=== PATIENT | female | born 1970 | race Caucasian/White ===

== ENCOUNTER 2020-10-04 16:47 | Outpatient (CLI) | payer BC, SELFPAY | END 2020-10-04 16:48 | disposition home or self-care (01) | LOC: ANHCOVIDVC 16:48 | PROVIDERS: PCP Family Medicine | DX: Z23 Encounter for immunization (principal) | CPT/HCPCS: 0001A; 91300 ==

== ENCOUNTER 2020-10-25 16:50 | Outpatient (CLI) | payer BC, SELFPAY | END 2020-10-25 16:51 | disposition home or self-care (01) | LOC: ANHCOVIDVC 16:50 | PROVIDERS: PCP Family Medicine | DX: Z23 Encounter for immunization (principal) | CPT/HCPCS: 0002A; 91300 ==

== ENCOUNTER 2021-03-10 18:20 | Emergency (ER) | payer BC, SELFPAY ==
--- NOTE | ~2021-03-10 | XR_ITS ---
EXAMINATION: XR chest 2V DATE: 03/10/2021 19:12 INDICATION: Productive cough and fever TECHNIQUE: frontal and lateral views of the chest were obtained. COMPARISON: Chest radiograph dated 07/15/2010 FINDINGS: The lungs remain clear with no focal airspace opacities, pulmonary edema, pleural effusion or pneumot horax. The cardiomediastinal silhouette is normal. Cholecystectomy clips in right upper quadrant. IMPRESSION: 1. No acute cardiopulmonary disease. Reviewed, dictated and finalized at location A.
[2021-03-10 18:34] VITALS: BP 112/88; PULSE 85; RESP 16; TEMP 39.1; O2SAT 98
--- NOTE | 2021-03-10 18:54 | ED.URI ---
HPI - URI/Sore Throat General Chief Complaint: Upper Respiratory Infection Stated Complaint: Fever,Headache,Congestion Time Seen by Provider: 03/10/21 18:54 Source: patient Mode of arrival: ambulatory Limitations: no limitations History of Present Illness HPI Narrative: 50 year old female who presents [facility] with complaints of headache, congestion, and intermittent fevers since Thursday. Patient states that she had rapid and PCR COVID testing which were both negative. Patient continues to have sinus congestion and drainage with some cough and some headache discomfort. Patient reports that she has been taking OTC cough and cold medications and using Tylenol and Ibuprofen for her fever. Patient reports generalized aching and malaise. She reports that she has had COVID immunizations X2 with [employer] vaccine. MD elicited complaint: fever, nasal congestion and other (headache) Related Data Home Medications Medication Instructions Recorded Confirmed celecoxib 50 mg capsule 50 mg PO DAILY 09/28/20 Allergies Allergy/AdvReac Type Severity Reaction Status Date / Time erythromycin base Allergy Unknown UNKNOWN Verified 09/28/20 10:27 Macrolide Antibiotics Allergy Unknown UNKNOWN Verified 09/28/20 10:27 Review of Systems Review of Systems: CONSTITUTIONAL: Positive fever, chills, or sweats. EYES: Denies visual changes, redness, or discharge. ENT:Positive for rhinorrhea, congestion, no sore throat, or otalgia. CARDIOVASCULAR: Denies chest pain, palpitations, or edema. RESPIRATORY: Positive for cough no dyspnea. GASTROINTESTINAL: Denies abdominal pain, nausea, vomiting, or diarrhea. GENITOURINARY: Denies dysuria or hematuria. SKIN: Denies rash or itching. MUSCULOSKELETAL: Denies back pain, joint pain, positive for generalized malaise and aching NEUROLOGIC: Positive headache,no numbness, or weakness. PSYCHIATRIC:Positive history of anxiety or depression. All systems reviewed & are unremarkable except as noted in HPI and below PMFSH Past Medical History Medical History Chronic low back pain HLD (hyperlipidemia) Mood disorder Normal colonoscopy (~2012) MAJOR (obstructive sleep apnea) Surgical History Surgical History H/O esophagogastroduodenoscopy (~2012) normal H/O foot surgery bilateral bunion repair Total knee replacement status Family History Family History (Updated 03/12/21 @ 20:54 by Belén Mccrary NP) Other Adopted Social History Social History Smoking status: Never smoker Second hand tobacco smoke exposure: No Alcohol intake: current Alcohol use details: rare Substance use: never Substance use type: does not use Gender identity (if verbalized by the patient): Female Comments At time of signature, agree with nursing past medical, surgical, social and family history. There is no relevant family history pertinent to the presenting complaint Exam Narrative: GENERAL: Well-appearing, well-nourished, and in no acute distress. HEAD: Normocephalic, atraumatic. EYES: PERRLA and EOMI. ENT: Nares red swollen with clear rhinorrhea no epistaxis. Mucous membranes moist.TM's normal with dull light refex, throat mild redness with no lesions or exudates no tonsil enlargement, post nasal drainage noted to back of throat.Positive for frontal headache NECK: Supple.no lymphadenopathy CHEST: Clear to auscultation. No respiratory distress. cough at times productive SAO2 98% on room air HEART: Regular rate and rhythm. No murmur heard. Normal peripheral pulses. ABDOMEN: Soft, nontender, nondistended, normal active bowel sounds. EXTREMITIES: Normal range of motion. No edema. SKIN: Warm, dry, no rash. NEURO: No focal deficits. Alert and oriented x3. Course Vital Signs Vital signs: Vital Signs Temperature 39.1 C H 03/10/21 18:34 Pulse Ra
== END 2021-03-10 19:58 | disposition home or self-care (01) ==
PROVIDERS: Emergency Provider Registered Nurse; PCP Family Medicine
DX: J01.40 Acute pansinusitis, unspecified (principal); J06.9 Acute upper respiratory infection, unspecified; E78.5 Hyperlipidemia, unspecified; G47.33 Obstructive sleep apnea (adult) (pediatric)
CPT/HCPCS: 71046; 99213; G0463

== ENCOUNTER 2021-03-28 14:37 | Emergency (ER) | payer BC, SELFPAY ==
[2021-03-28 14:51] VITALS: BP 103/50; PULSE 87; RESP 20; TEMP 39.2; O2SAT 97
--- NOTE | 2021-03-28 15:25 | ED.URI ---
HPI - URI/Sore Throat General Chief Complaint: Upper Respiratory Infection Stated Complaint: FEVER/CONGESTION Source: patient and RN notes reviewed Mode of arrival: ambulatory History of Present Illness HPI Narrative: This is a 50-year-old female who presented to urgent care with complaints of body aches, productive cough yellowish, frontal lobe pain, chills, postnasal dripping, and temperature of 100.3. Patient notes that last month she visited our urgent care and was prescribed Augmentin for sinus infection. Patient notes that it did not prove. She was also tested for Covid at that time which was negative. She has been vaccinated. She does not believe that she is Covid positive believe that her problem is linked to her sinuses. The patient denies SOB, CP, palpitation, extremity numbness, lightheadedness, dizziness, constipation, diarrhea, chills, or fever. Related Data Home Medications Medication Instructions Recorded Confirmed celecoxib [Celebrex] 50 mg PO BID 03/28/21 03/28/21 cyclobenzaprine [Flexeril] 10 mg PO HS 03/28/21 03/28/21 venlafaxine [Effexor XR] 75 mg PO DAILY 03/28/21 03/28/21 Allergies Allergy/AdvReac Type Severity Reaction Status Date / Time erythromycin base Allergy Unknown UNKNOWN Verified 03/28/21 15:01 Macrolide Antibiotics Allergy Unknown UNKNOWN Verified 03/28/21 15:01 Review of Systems Review of Systems: A 14 organ system Review of Systems was performed and pertinent positives included in the HPI, otherwise remaining ROS is negative. [facility] Past Medical History Medical History Chronic low back pain HLD (hyperlipidemia) Mood disorder Normal colonoscopy (~2012) MAJOR (obstructive sleep apnea) Surgical History Surgical History H/O esophagogastroduodenoscopy (~2012) normal H/O foot surgery bilateral bunion repair Total knee replacement status Family History Family History Other Adopted Social History Social History Smoking status: Never smoker Second hand tobacco smoke exposure: No Alcohol intake: current Alcohol use details: rare Substance use: never Substance use type: does not use Gender identity (if verbalized by the patient): Female Exam Narrative: GENERAL: This is a well-nourished, well-developed patient, in no apparent distress. HEAD: normocephalic, atraumatic. Frontal and maxillary tenderness EYES: PERRL. Sclera clear/white. Vision is grossly intact. EARS: External ears normal, auditory canals clear and without drainage, TMs normal without perforation. Hearing grossly intact. NOSE: External nose normal with no obvious nasal discharge, nares without redness, no rhinorrhea. THROAT: Mucous membranes moist, posterior pharynx erythematous. NECK: Neck supple, non-tender without lymphadenopathy, masses or thyromegaly. CARDIOVASCULAR: Regular rate and rhythm without murmurs, gallops, or rubs. RESPIRATORY: Clear to auscultation. Breath sounds equal bilaterally. No wheezes, rales, or rhonchi. GASTROINTESTINAL: Abdomen soft, non-tender, nondistended. Bowel sounds are active. No hepato-splenomegaly, or palpable masses. No guarding. SKIN: warm, intact with no suspicious lesions or rash, good texture and turgor. NEURO: awake, alert, and oriented to person, place and time. There were no obvious focal neurologic abnormalities. Steady gait EXTREMITIES: Normal range of motion. No edema. No calf tenderness. Negative Homans sign bilaterally. BACK: Nontender without deformity or crepitance. No flank tenderness. Course Course Emergency Course: Patient will discharge home with amoxicillin due to amoxicillin treatment failure, Delonte Boyd and instructed to take [id number] Tylenol for fever Vital Signs Vital signs: Vital Signs Temperature
[2021-03-28 15:29] VITALS: TEMP 39.3
[2021-03-28] MEDS: ACETAMINOPHEN 325 MG TABLET 650 MG PO (15:29)
== END 2021-03-28 15:48 | disposition home or self-care (01) ==
PROVIDERS: Emergency Provider Nurse Practitioner; PCP Family Medicine
DX: J01.11 Acute recurrent frontal sinusitis (principal); E78.5 Hyperlipidemia, unspecified; G47.33 Obstructive sleep apnea (adult) (pediatric)
CPT/HCPCS: 99213; A9270; G0463

== ENCOUNTER → 2021-05-17 12:12 | Outpatient (CLI) | payer BC, SELFPAY ==
--- NOTE | ~2021-05-17 | MM_ITS ---
EXAMINATION: MM screening nico BI w noelle HISTORY: Screening mammogram TECHNIQUE: Craniocaudal and mediolateral oblique 3-D tomosynthesis images were obtained and synthetic 2-D images were generated. CAD analysis was submitted and interpreted. COMPARISON: 07/18/2016, 10/14/2019 bilateral digital screening mammogram examinations BREAST PARENCHYMAL COMPOSITION: The breasts are almost entirely fatty. FINDINGS: There is no evidence of suspicious mass, calcification, or architectural distortion to sugg est malignancy in either breast. There has been no suspicious interval change. IMPRESSION: 1. No mammographic evidence of malignancy. 2. Recommend routine screening mammography in one year. BI-RADS Category 1: Negative Reviewed, dictated and finalized at location A.
== END ==
PROVIDERS: PCP Family Medicine; Visit Provider Family Medicine
DX: Z12.31 Encounter for screening mammogram for malignant neoplasm of breast (principal)
CPT/HCPCS: 77063; 77067

== ENCOUNTER 2022-05-12 02:45 | Day surgery (SDC) | payer BC, SELFPAY ==
[2022-05-08 16:00] VITALS: BMI 40.4
[2022-05-12 08:06] VITALS: BP 190/64; PULSE 44; RESP 18; TEMP 36.1; O2SAT 100
--- NOTE | 2022-05-12 08:17 | WPDANESEPPF ---
Anes - Initial Pre Proc Eval Procedure: Operation Date: 05/12/22 09:00 Proposed Procedures p Screening Colonoscopy - Romeo Alves MD Date/Time: 05/12/22 08:17 Surgeon: Romeo Alves MD Pre Op Diagnosis: neoplasm screening Patient Data Age: 51 Gender: F Height: 1.75 m Weight: 125.7 kg Last Vital Signs Temp 36.1 C L 05/12/22 08:06 Pulse 44 L 05/12/22 08:06 Resp 18 05/12/22 08:06 BP 190/64 H 05/12/22 08:06 Pulse Ox 100 05/12/22 08:06 O2 Del Method Room Air 05/12/22 08:06 Allergies Allergy/AdvReac Type Severity Reaction Status Date / Time erythromycin base Allergy Intermediate Gastrointestinal Verified 05/12/22 08:05 Upset Macrolide Antibiotics Allergy Unknown UNKNOWN Verified 05/12/22 08:05 Home Medications Medication Instructions Recorded Confirmed Type albuterol sulfate 90 mcg/actuation 1 inh inhalation Q4H PRN shortness 06/29/20 05/08/22 Rx aerosol inhaler (ProAir HFA) of breath or wheezing #18 grams omeprazole 20 mg capsule,delayed 20 mg PO DAILY #90 caps 11/11/21 05/08/22 Rx release blood pressure monitor (Blood #1 ea 01/07/22 03/21/22 Rx Pressure Kit) celecoxib 200 mg capsule (Celebrex) 200 mg PO DAILY #30 caps 03/21/22 05/08/22 Rx lamotrigine 25 mg tablet 75 mg PO DAILY #90 tabs 03/21/22 05/08/22 Rx venlafaxine 37.5 mg 37.5 mg PO DAILY #30 caps 03/21/22 05/08/22 Rx capsule,extended release 24 hr tizanidine 4 mg tablet 4 mg PO QHS PRN muscle spasticity 03/24/22 05/08/22 Rx #90 tabs peg 3350-electrolytes 236 240 ml PO Q10M #4,000 mL 03/26/22 05/08/22 Rx gram-22.74 gram-6.74 gram-5.86 gram solution (Golytely) Fish Oil 2,000 units PO BID 05/08/22 05/08/22 History calcium carbonate 600 mg-vitamin 2 tablet PO DAILY 05/08/22 05/08/22 History D3 10 mcg (400 unit) tablet (Calcium with Vitamin D) cranberry extract 500 mg tablet 500 mg PO DAILY 05/08/22 05/08/22 History zolpidem 10 mg tablet (Ambien) 10 mg PO .at night #30 tabs 05/09/22 Rx Patient hx anesthesia problems: none Family hx anesthesia problems: none Results Review: All pre-operative results and documents have been reviewed as part of the pre-operative evaluation. [facility] Past Medical History Medical History (Updated 05/12/22 @ 08:18 by Romeo Schafer DO) Anxiety Chronic low back pain Elevated blood pressure reading HLD (hyperlipidemia) Mood disorder Normal colonoscopy (~2012) MAJOR (obstructive sleep apnea) Surgical History Surgical History H/O esophagogastroduodenoscopy (~2012) normal H/O foot surgery bilateral bunion repair Total knee replacement status Family History Family History Other Adopted Social History Social History Smoking status: Never smoker Second hand tobacco smoke exposure: No Alcohol intake: current Alcohol use details: rare Substance use: never Substance use type: does not use Living arrangements: with family Gender identity (if verbalized by the patient): Female Spiritual care concerns: No Agree to blood products: Yes Anes - Eval Final PreProcedure Day of Procedure 05/12/22 08:17 Patient weight: morbidly obese Heart: regular rate and rhythm Lungs: clear to auscultation Airway: Mallampati scale class II Neurological: alert and oriented Last oral intake: >/= 8 hours ASA classification: III Emergent: no Anesthetic plan: proceed Anesthesia type and monitoring: general GIVS and standard monitoring Results Review: All pre-operative results and documents have been reviewed as part of the pre-operative evaluation. Informed Consent: The patient's anesthetic plan and its attendant risks and benefits were discussed with the patient/family/POA. Questions were solicited and answers provided to the satisfaction of the patient/family/POA
[2022-05-12] MEDS: LACTATED RINGERS 1,000 ML 150 ML IV CONT (08:27)
[2022-05-12 08:48] VITALS: BP 136/70; PULSE 45
--- NOTE | 2022-05-12 08:48 | PM.HPGS ---
History of Present Illness History of Present Illness Consent: Risks, benefits, and alternatives have been discussed and questions answered. Patient agrees to proceed with procedure. Chief complaint: neoplasm screening Narrative: Geneva Newman is a 51 year old female Presents for screening colonoscopy. Patient's current weight appetite and bowel movements are normal. Patient denies abdominal pain. She has had no bleeding. Family history is noncontributory. Patient was adopted. Patient last colonoscopy 2006 was unremarkable. Review of Systems Review of Systems: Review of systems noncontributory. [facility] Past Medical History Medical History (Updated 05/12/22 @ 08:49 by Romeo Alves MD) Anxiety Chronic low back pain Elevated blood pressure reading HLD (hyperlipidemia) Mood disorder Normal colonoscopy (~2012) MAJOR (obstructive sleep apnea) Surgical History Surgical History H/O esophagogastroduodenoscopy (~2012) normal H/O foot surgery bilateral bunion repair Total knee replacement status Family History Family History Other Adopted Social History Social History Smoking status: Never smoker Second hand tobacco smoke exposure: No Alcohol intake: current Alcohol use details: rare Substance use: never Substance use type: does not use Living arrangements: with family Gender identity (if verbalized by the patient): Female Spiritual care concerns: No Agree to blood products: Yes Meds Home Medications and Allergies Home Medications Medication Instructions Recorded Confirmed Type albuterol sulfate 90 mcg/actuation 1 inh inhalation Q4H PRN shortness 06/29/20 05/08/22 Rx aerosol inhaler (ProAir HFA) of breath or wheezing #18 grams omeprazole 20 mg capsule,delayed 20 mg PO DAILY #90 caps 11/11/21 05/08/22 Rx release blood pressure monitor (Blood #1 ea 01/07/22 03/21/22 Rx Pressure Kit) celecoxib 200 mg capsule (Celebrex) 200 mg PO DAILY #30 caps 03/21/22 05/08/22 Rx lamotrigine 25 mg tablet 75 mg PO DAILY #90 tabs 03/21/22 05/08/22 Rx venlafaxine 37.5 mg 37.5 mg PO DAILY #30 caps 03/21/22 05/08/22 Rx capsule,extended release 24 hr tizanidine 4 mg tablet 4 mg PO QHS PRN muscle spasticity 03/24/22 05/08/22 Rx #90 tabs peg 3350-electrolytes 236 240 ml PO Q10M #4,000 mL 03/26/22 05/08/22 Rx gram-22.74 gram-6.74 gram-5.86 gram solution (Golytely) Fish Oil 2,000 units PO BID 05/08/22 05/08/22 History calcium carbonate 600 mg-vitamin 2 tablet PO DAILY 05/08/22 05/08/22 History D3 10 mcg (400 unit) tablet (Calcium with Vitamin D) cranberry extract 500 mg tablet 500 mg PO DAILY 05/08/22 05/08/22 History zolpidem 10 mg tablet (Ambien) 10 mg PO .at night #30 tabs 05/09/22 Rx Allergies Allergy/AdvReac Type Severity Reaction Status Date / Time erythromycin base Allergy Intermediate Gastrointestinal Verified 05/12/22 08:05 Upset Macrolide Antibiotics Allergy Unknown UNKNOWN Verified 05/12/22 08:05 Vital Signs Vital Signs - 24 hr 05/12/22 08:06 Temperature 97 F L Pulse Rate 44 L Respiratory Rate 18 Blood Pressure 190/64 H Pulse Oximetry 100 Oxygen Delivery Room Air Exam Narrative: Physical exam reveals patient to be alert. Vital signs stable. HEENT exam is unremarkable. Patient is anicteric. Lungs are clear to auscultation and percussion. Heart is without murmur or extra sounds. Abdomen bowel sounds are present soft nontender with no organomegaly. Digital external rectal exam is normal. Assessment and Plan Assessment and plan (1) Encounter for screening colonoscopy: Code(s): Z12.11 - Encounter for screening for malignant neoplasm of colon Status: Acute Assessment and Plan: Patient presents for screening colonoscopy. Patient appe
[2022-05-12 09:17] VITALS: BP 118/53; PULSE 45; RESP 16; O2SAT 99
[2022-05-12 09:27] VITALS: BP 139/66; PULSE 47; RESP 18; O2SAT 99
[2022-05-12 09:37] VITALS: BP 140/68; PULSE 45; RESP 20; O2SAT 99
== END 2022-05-12 09:51 | disposition home or self-care (01) ==
PROVIDERS: PCP Family Medicine; Visit Provider Internal Medicine Gastroenterology
PROC: 0DJD8ZZ Inspection of Lower Intestinal Tract, Via Natural or Artificial Opening Endoscopic (ICD-10-PCS; CPT 45378; principal; 2022-05-12 09:00)
DX: Z12.11 Encounter for screening for malignant neoplasm of colon (principal); K64.8 Other hemorrhoids; F41.9 Anxiety disorder, unspecified; E78.5 Hyperlipidemia, unspecified; G47.33 Obstructive sleep apnea (adult) (pediatric); Z79.51 Long term (current) use of inhaled steroids; E66.01 Morbid (severe) obesity due to excess calories; Z68.41 Body mass index [BMI] 40.0-44.9, adult
CPT/HCPCS: 45378; J2704; J7120

== ENCOUNTER 2022-05-28 15:42 | Outpatient (CLI) | payer BC, SELFPAY ==
[2022-05-28 17:03] LABS: Influenza A QL RT-PCR Negative (Negative); Influenza B QL RT-PCR Negative (Negative); SARS-CoV-2 RNA PCR Negative
== END 2022-05-28 15:43 | disposition home or self-care (01) ==
LOC: ANHLAB 15:44
PROVIDERS: PCP Family Medicine; Visit Provider Physician Assistant
DX: R50.9 Fever, unspecified (principal); Z20.822 Contact with and (suspected) exposure to COVID-19
CPT/HCPCS: 87502; U0003; U0005

== ENCOUNTER 2024-09-12 10:25 | Emergency (ER) | payer BC, SELFPAY ==
--- NOTE | ~2024-09-12 | CT_ITS ---
EXAMINATION: CT abdomen pelvis w con DATE: 09/12/2024 12:02 INDICATION: Right lower quadrant abdominal pain TECHNIQUE: Computed tomography (CT) of the abdomen and pelvis was performed with 100 mL Omnipaque-350 intravenous contrast. Automated exposure control and iterative reconstruction technique were employe d. The dose-length product was 1623.48 mGy-cm. COMPARISON: None FINDINGS: Lung bases are clear. Heart size is normal. No pericardial or pleural effusion. Focal hepatic steatos is ligamentum teres. Cholecystectomy clips the gallbladder fossa. Spleen, pancreas and right adrenal gland are normal. 5 mm macroscopic fat attenuation left adrenal myelolipoma. 2.4 cm cyst at the lower pole the left kidney with a few additional subcentimeter low-attenuation likely bilateral renal cyst s. Bowels including the appendix are normal. Bladder, anteverted uterus and bilateral adnexa are unre markable. No free intraperitoneal gas or fluid. No pathologically enlarged abdominal or pelvic lympha denopathy. Tiny fat-containing umbilical hernia. Severe lumbar spondylosis. IMPRESSION: 1. No acute intra-abdominal/pelvic process. Specifically the appendix is normal. Reviewed, dictated and finalized at location A. 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 No acute intra-abdominal/pelvic process. Specifically the appendix is normal .
[2024-09-12 10:36] VITALS: BP 161/76; PULSE 62; RESP 15; TEMP 36.4; O2SAT 98
[2024-09-12 11:29] LABS: Basophils Percent Auto 0.7 % (0.2-1.2); Eosinophils Absolute Auto 0.2 K/mm3 (0-0.3); Eosinophils Percent Auto 3.7 % (0-4.4); Hematocrit 44.4 % (37.0-47.0); Hemoglobin 14.4 g/dL (12.0-15.0); Immature Granulocyte Absolute 0.02 K/mm3 (0.00-0.031); Immature Granulocyte Percent A 0.5 % (0-0.5); Lymphocytes Percent Auto 25.2 % (18.3-44.2); Mean Corpuscular HGB Conc 32.4 g/dl (32-36); Mean Corpuscular Hemoglobin 28.7 pg (26-34); Mean Corpuscular Volume 88.6 fl (80-100); Mean Platelet Volume 9.6 fl (7.4-10.4); Monocytes Absolute Auto 0.3 K/mm3 (0.1-0.6); Monocytes Percent Auto 5.7 % (2.6-8.5); Neutrophils Absolute Auto 2.8 K/mm3 (1.3-6.7); Neutrophils Percent Auto 64.2 % (45.5-73.1); Platelet Count Result 161 k/mm3 (150-375); Red Blood Count 5.01 M/mm3 (4.2-5.4); Red Cell Distribution Width 14.6 % (11.5-14.5); White Blood Count 4.4 K/mm3 (4.5-10.0)
[2024-09-12 11:34] LABS: Add Urine Microscopic? YES; Appearance Urine Clear (Clear); Bacteria Urine None Seen /hpf; Bilirubin Urine Negative (Negative); Blood Urine Negative (Negative); Color Urine Yellow (Yellow); Glucose Urine UA Negative (Negative); Ketones Urine Trace mg/dL (Negative); Leukocyte Esterase Ur Trace LEU/UL (Negative); Nitrate Urine Negative (Negative); Non Pathogenic Casts 0-2; Protein Urine Negative (Negative); RBC Urine 0-2 /hpf (0-2); Specific Grav Ur 1.012 (1.001-1.035); Squamous Epithelial Cell Urine None Seen /hpf (Few); Urobilinogen Urine 0.2 mg/dL (<2.0); WBC Urine 0-5 /hpf (0-3); pH Urine 5.5 (5.0-9.0)
[2024-09-12 11:46] LABS: Alanine Aminotransferase 47 U/L (6-35); Albumin Level 3.7 g/dL (3.5-5.1); Alkaline Phosphatase 73 U/L (38-126); Anion Gap 9 mmol/L (4-12); Aspartate Amino Transferase 43 U/L (14-36); Bilirubin,Total 0.7 mg/dL (0.2-1.3); Blood Urea Nitrogen 18 mg/dL (7-17); Calcium 9.2 mg/dL (8.4-10.2); Carbon Dioxide 28 mmol/L (22-30); Chloride 105 mmol/L (98-107); Estimated CRCL calculation 82 ml/min; Estimated Glomerular Filt Rate 59; Glucose 82 mg/dL (65-110); Lipase 117 U/L (23-300); Potassium 4.4 mmol/L (3.4-5.0); Sodium 142 mmol/L (137-145)
--- NOTE | 2024-09-12 12:35 | ED_ITS ---
HPI - General Adult General Chief complaint: Abdominal Pain Stated complaint: RLQ pain Time Seen by Provider: 09/12/24 11:03 History of Present Illness HPI narrative: Patient is a 53-year-old female who presents ER with lower abdominal pain. Right-sided. Worsening over last 2-3 days. Worse with physical movement with bending. Occasionally feels better with pressing in on the area. No urinary frequency urgency or dysuria. No constipation or diarrhea. Has not found any alleviating factors. Related Data Home Medications ?Medication ?Instructions ?Recorded ?Confirmed ?Last Taken ?Type Fish Oil 2,000 units PO BID 05/08/22 06/28/24 Unknown History calcium 600 mg (as 2 tablet PO DAILY 05/08/22 06/28/24 Unknown History carbonate)-vitamin D3 10 mcg (400 unit) tablet (Calcium with Vitamin D) cranberry extract 500 mg tablet 500 mg PO DAILY 05/08/22 06/28/24 Unknown History Allergies Allergy/AdvReac Type Severity Reaction Status Date / Time erythromycin base Allergy Intermediate Gastrointestinal Verified 09/12/24 11:28 Upset Macrolide Antibiotics Allergy Unknown UNKNOWN Verified 09/12/24 11:28 Review of Systems 2 Review of Systems: All systems reviewed & are unremarkable except as noted in HPI and below Constitutional: Constitutional: Reports no additional constitutional complaints Cardiovascular: Cardiovascular: Reports no additional cardiovascular complaints Respiratory: Respiratory: Reports no additional respiratory complaints Gastrointestinal: Gastrointestinal: Reports no additional gastrointestinal complaints Genitourinary: Genitourinary: Reports no additional female genitourinary complaints PMFSH Past Medical History Medical History Anxiety Chronic low back pain Elevated blood pressure reading HLD (hyperlipidemia) Mood disorder Normal colonoscopy (~2012) MAJOR (obstructive sleep apnea) Surgical History Surgical History H/O esophagogastroduodenoscopy (~2012) normal H/O foot surgery bilateral bunion repair Total knee replacement status Family History Family History Other Adopted Social History Social History Smoking status: Never smoker Second hand tobacco smoke exposure: No Alcohol intake: current Alcohol use details: rare Substance use: never Substance use type: does not use Lack of Transportation: No Lack of Food: Never True Current Housing: I Have Housing Concerned About Future Housing: No Difficulty Paying Gas/Electric Bills: No Difficulty Paying for Meds: No Currently Unemployed: No Education: Trade/Vocational Certificate Difficulty w/ Childcare or Family Care: No Living arrangements: with family Occupation/Education: unemployed Gender identity (if verbalized by the patient): Female Spiritual care concerns: No Agree to blood products: Yes Exam 2 Narrative: GENERAL: Well-appearing, well-nourished, and in no acute distress. HEAD: Normocephalic, atraumatic. ENT: Mucous membranes moist. NECK: Supple. CHEST: Clear to auscultation. No respiratory distress. HEART: Regular rate and rhythm. Normal peripheral pulses. ABDOMEN: Soft, tender palpation right lower quadrant as well as left lower quadrant, nondistended. EXTREMITIES: Normal range of motion. No edema. SKIN: Warm, dry, no rash. NEURO: Alert and oriented x3. PSYCH: Normal mood and affect. Course Course Emergency Course: Morphine for pain. Informed of results. Discharge. Patient may have abdominal wall strain or fecal loading on the right side that is causing her discomfort. Vital Signs Vital signs: Vital Signs Temperature 97.5 F L 09/12/24 10:36 Pulse Rate 62 09/12/24 10:36 Respiratory Rate 09/12/24 10:36 Blood Pressure 161/76 H 09/12/24 10:36 Pulse Oximetry 98 09/12/24 10:36 Oxygen Delivery Room Air 09/12/24 10:36 Temperature 97.5 F L 09/12/24 10:36 Pulse Rate 62 09/12/24 10:36 Respiratory Rate 15 09/12/24 10:36 Blood Pressure 161/76 H 09/12/24 10:36 Pulse Oximetry 98 09/12/24 10:36 Oxygen Delivery Room Air 09/12/24 10:36 Medical Decision Making Vital Signs Vital Signs: Vital Signs Temperature 97.5 F L 09/12/24 10:36 Pulse Rate 62 09/12/24 10:36 Respiratory Rate 15 09/12/24 10:36 Blood Pressure 161/76 H 09/12/24 10:36 Pulse Oximetry 98 09/12/24 10:36 Oxygen Delivery Room Air 09/12/24 10:36 Temperature 97.5 F L 09/12/24 10:36 Pulse Rate 62 09/12/24 10:36 Respiratory Rate 15 09/12/24 10:36 Blood Pressure 161/76 H 09/12/24 10:36 Pulse Oximetry 98 09/12/24 10:36 Oxygen Delivery Room Air 09/12/24 10:36 Lab Data 09/12/24 11:20 09/12/24 11:20 Labs: Lab Results 09/12/24 09/12/24 Range/Units 11:20 11:21 WBC 4.4 L (4.5-10.0) K/mm3 RBC 5.01 (4.2-5.4) M/mm3 Hgb 14.4 (12.0-15.0) g/dL Hct 44.4 (37.0-47.0) % MCV 88.6 (80-100) fl MCH 28.7 (26-34) pg MCHC 32.4 (32-36) g/dl RDW 14.6 H (11.5-14.5) % Plt Count 161 (150-375) k/mm3 MPV 9.6 (7.4-10.4) fl Immature Gran % (Auto) 0.5 (0-0.5) % Neut % (Auto) 64.2 (45.5-73.1) % Lymph % (Auto) 25.2 (18.3-44.2) % [place] % (Auto) 5.7 (2.6-8.5) % Eos % (Auto) 3.7 (0-4.4) % Baso % (Auto) 0.7 (0.2-1.2) % Lymph # (Auto) 1.10 (0.9-3.2) K/mm3 [place] # (Auto) 0.3 (0.1-0.6) K/mm3 Eos # (Auto) 0.2 (0-0.3) K/mm3 Baso # (Auto) 0.0 (0.0-0.1) K/mm3 Abs Immat Gran (auto) 0.02 (0.00-0.031) K/mm3 Absolute Neuts (auto) 2.8 (1.3-6.7) K/mm3 Absolute Nucleated RBC 0.000 (0.0-0.012) K/mm3 Nucleated RBC % 0.0 (0.0-0.2) % Sodium 142 (137-145) mmol/L Potassium 4.4 (3.4-5.0) mmol/L Chloride 105 (98-107) mmol/L Carbon Dioxide 28 (22-30) mmol/L Anion Gap 9 (4-12) mmol/L BUN 18 H (7-17) mg/dL Creatinine 0.98 (0.7-1.0) mg/dL Estim Creat Clear Calc 82 ml/min Estimated GFR 59 (59 - ) Glucose 82 (65-110) mg/dL Calcium 9.2 (8.4-10.2) mg/dL Total Bilirubin 0.7 (0.2-1.3) mg/dL AST 43 H (14-36) U/L ALT 47 H (6-35) U/L Alkaline Phosphatase 73 (38-126) U/L Total Protein 7.0 (6.3-8.2) g/dL Albumin 3.7 (3.5-5.1) g/dL Lipase 117 (23-300) U/L Urine Color Yellow (Yellow) Urine Appearance Clear (Clear) Urine pH 5.5 (5.0-9.0) Ur Specific [place] 1.012 (1.001-1.035) Urine Protein Negative (Negative) mg/dL Urine Glucose (UA) Negative (Negative) mg/dL Urine Ketones Trace H (Negative) mg/dL Ur Blood (Man) Negative (Negative) Urine Nitrate Negative (Negative) Urine Bilirubin Negative (Negative) Urine Urobilinogen 0.2 (<2.0) mg/dL Leukocyte Esterase Rfl Trace H (Negative) GLADYS/UL Urine RBC 0-2 (0-2) /hpf Urine WBC 0-5 (0-3) /hpf Ur Squamous Epith Cells None seen (Few) /hpf Urine Bacteria None seen /hpf Urine Casts 0-2 Imaging Data Radiologist's impression: ITS Impressions Abdomen/Pelvis CT 09/12/24 12:04 IMPRESSION: 1. No acute intra-abdominal/pelvic process. Specifically the appendix is normal. Discharge Plan Discharge Clinical Impression: Right lower quadrant abdominal pain Patient Disposition: Home, Self-Care Condition: Stable Instructions: Abdominal Pain (ED) Additional Instructions: Return to the emergency department if you develop severe abdominal pain, severe nausea and vomiting to the point where you are unable to keep down fluids, if you develop chest pain or difficulty breathing, blood in your stool, dizziness or fainting, or if you develop any other new or concerning symptoms as these could be signs of more serious medical illness. Try to stay well hydrated. Patient Language: Azerbaijani Prescriptions: No Action (DME) blood pressure monitor [Blood Pressure Kit] Kit See Rx Instructions .Route Qty: 1 0RF Rx Instructions: measure blood pressure daily venlafaxine 37.5 mg capsule,extended release 24hr 37.5 mg PO DAILY Qty: 30 4RF calcium carbonate-vitamin D3 [Calcium with Vitamin D] 600 mg-10 mcg (400 unit) Tablet 2 tablet PO DAILY cranberry extract 500 mg Tablet 500 mg PO DAILY Rx Instructions: administer with meals Fish Oil 2,000 units PO BID lamotrigine 25 mg tablet 75 mg PO DAILY 90 Days Qty: 270 1RF celecoxib [Celebrex] 200 mg capsule 200 mg PO DAILY Qty: 30 4RF zolpidem [Ambien] 10 mg tablet 10 mg PO .at night Qty: 30 1RF tizanidine 4 mg tablet 8 mg PO QHS PRN (Reason: muscle spasticity) Qty: 180 0RF trazodone 100 mg tablet 100 mg PO QHS PRN (Reason: insomnia) Qty: 30 4RF ezetimibe 10 mg tablet 10 mg PO DAILY Qty: 90 3RF Follow-up/Referrals: Colette Hernandez MD [Primary Care Provider] - 1 Week
[2024-09-12] MEDS: MORPHINE SULFATE (*CRX) 4 MG/ML INJ IV PUSH (12:50)
--- OUTSIDE RECORDS SUMMARY | 2024-09-12 13:31 | XMS_ITS | Encounter Summary ---
Author Organization [facility] Health Address [address] [place] [address] Care Team Providers Care Postdoctoral Research Fellow Name Role Phone Colette Hernandez MD Primary Care Provider [phone] Pop Phillips MD Unavailable [phone] Encounter Details Date Type Department Care Team (Late st Contact Info) Description 09/05/2020 [facility] Outpatient Visit [facility] [address] [place] [address] [place] [address] [place] [address] Social History Tobacco Use Types Packs/Day Years Used Date Smoking Tobacco: Never Smokeless Tobacco: Never Alcohol Use Standard Drinks/Week Comments Yes 0 (1 standard drink = 0.6 oz pur e alcohol) occas AUDIT-C Answer Date Recorded Frequency of Alcohol Consumption Monthly or less 08/09/2019 Average Number of Drinks Not on file 020 Frequency of Binge Drinking Not on file 07/27 Sex and Gender Information Value Date Recorded Sex Assigned at Female 12/22/2023 8:58 AM CDT Gender Identity Not on file Sexual Orientation Not on file documented as of this encounter Functional Status Functional Status Response Date of Assess ment Is person deaf or have serious hearing difficult y? No 07/17/2020 Is person blind or have serious difficulty seein g? No 07/17/2020 Does person have serious dif ficulty walking/climbing stairs? Yes 07/17/2020 Does person have difficulty dressing/bathing? No 07/17/2020 Does person have difficulty doing errands alone? Yes 07/17/2020 Cognitive Status Response Date of Assessm ent Does person have difficulty concentrating/remembering/making decisions? No 07/17/2020 documented as of this encounter Plan of Treatment Not on file documented as of this encounter Visit Diagnoses Not on filedocumented in this encounter Care Teams Postdoctoral Research Fellow Relationship Specialty Start Date End Date Colette Hernandez MD [address] [place] [address] PCP - General Family Medicine 08/09/19 [place] [address] [place] [id number] Orthopedic Surgery 08/09/19 documented as of this encounter
--- OUTSIDE RECORDS SUMMARY | 2024-09-12 13:31 | XMS_ITS | Referral Summary ---
Author Organization [facility] Address [address] [facility] [place] [address] Care Team Providers Care Air Conditioning Installer Supervisor Name Role Phone Colette Hernandez MD Primary Care Provider [phone] Pop Phillips MD Unavailable [phone] Source Comments [facility],non-[facility] Affiliates and Associated Physician Practices is amultiple site organization consisting of ambulatory clinics and hospital sitesin [place], [place], [place] and [place]. This disclosure is being madepursuant to the Care Everywhere program and may not contain all information available regarding this patient. Last updated 18.[facility] Encounters Date Type Department Care Team Description 07/07/[address], [address] [place] [address] Pop Phillips MD Letter 06/15/[address], [facility] [address] [place] [address] Raul Walter, POT RELINER-MANAGER OUTREACH Refill Request from Last 3 Months Allergies Active Allergy Reactions Criticality Noted Date Comments Erythromycin Nausea and/or Vomiting 08/09/2019 Simvastatin Hepatic Injury High 07/16/2020 Elevated LFT Medications * Be aware that medications may not be up to date on this document. Alwaysverify current medications with the patient. Medication Sig Dispensed Refills Start Date End Date Status zolpidem (AMBIEN) 10 MG tabletIndications :Insomnia Take 1 (one) tablet by mouth once daily as needed for Insomnia Reasons: Trouble Sleeping 07/18/2019 Active venlafaxine (EFFEXOR) 75 MG tabletIndications :Major Depressive Disorder Take 0.5 (one-half) tablet by mouth once daily 37.5 MG DAILY Reasons: Major Depressive Disorder 01/19/2023 Active lamoTRIgine (LAMICTAL) 25 MG tabletIndications :Depressive Phase Bipolar Mood Disorder Take 1 (one) tablet by mouth 2 times daily Reasons: Depressive Phase of Manic-Depression Active CRANBERRY POIndications:SUP PLMENT Take by mouth once daily Reasons: SUPPLMENT Active Boswellia-Glucosa mine-Vit D (OSTEO BI-FLEX ONE PER DAY PO)Indications:OLIVER PPLEMENT Take by mouth once daily Reasons: SUPPLEMENT Active Multiple Vitamins-Minerals (CENTRUM SILVER ULTRA WOMENS PO)Indications:OLIVER PPLEMENT Take by mouth once daily Reasons: SUPPLEMENT Active Multiple Vitamins-Minerals (HAIR SKIN AND NAILS FORMULA PO)Indications:OLIVER PPLEMENT Take by mouth once daily Reasons: SUPPLEMENT Active Nutritional Supplements (ESTROVEN PO) Active calcium carbonate - vitamin D (CALCIUM+D3) 600-800 MG-UNIT tabletIndications :SUPPLEMENT Take 1 (one) tablet by mouth daily with breakfast Reasons: SUPPLEMENT Active PROAIR HFA 108 (90 Base) MCG/ACT inhalerIndication s:SOB, WHEEZING Inhale 1 (one) puff by mouth every 6 hours as needed Reasons: SOB, WHEEZING 06/29/2020 Active aspirin (ASPIRIN) 81 MG chew tablet Take 1 tablet by mouth 2 times daily with morning and evening meal for 42 days Take for blood clot prevention for 6 weeks 84 tablet 07/17/2020 Active tiZANidine (Zanaflex) 4 MG tabletIndications :Muscle Spasticity 4 MG ORALLY EVERY DAY AT BEDTIME NEEDED FOR MUSCLE SPASTICITY 10/16/2023 Active Villard-3 Fatty Acids (FISH OIL CONCENTRATE PO)Indications:OLIVER PPLEMENT Reasons: SUPPLEMENT Activ e B Xbjnpoe-I-Wjzoy Acid (vitamin B complex with C)Indications:SUP PLEMENT Take by mouth once daily Reasons: SUPPLEMENT Active Ascorbic Acid (SUPER C COMPLEX PO)Indications:OLIVER PPLEMENT Reasons: SUPPLEMENT Activ e diclofenac sodium (Voltaren) 1 % gelIndications:Os teoarthritis Apply 4 (four) g to affected area 4 times daily Reasons: Joint Damage causing Pain and Loss of Function 01/16/2024 Active acetaminophen (Tylenol) 325 MG tablet Take 2 (two) tablets by mouth every 6 hours as needed Maximum allowable Acetaminophen amount = 4 Grams (4000 mg) / 24 hours. 02/16/2024 Active docusate sodium (Colace) 100 MG capsule Take 1 (one) capsule by mouth 2 times daily 30 capsule 02/16/2024 Active celecoxib (CeleBREX) 200 MG capsule Take 1 (one) capsule by mouth once daily 02/28/2024 Active omeprazole (PriLOSEC) 20 MG capsuleIndication s:Heartburn Take 1 (one) capsule by mouth daily before breakfast for 90 days Reasons: Heartburn 90 capsule 03/18/2024 Active oxyCODONE, immediate release, (Roxicodone) 10 MG tabletIndications :Postoperative pain Take 0.5 (one-half) tablet to 1 (one) tablet by mouth every 4 hours as needed for Pain (pain) 30 tablet 03/24/2024 Active cefadroxil (Duricef) 500 MG capsule 03/30/2024 Active aspirin (Aspirin) 81 MG chew tablet CHEW AND SWALLOW 1 TABLET BY MOUTH TWO TIMES A DAY FOR 42 DAYS FOR BLOOD CLOT PREVENTION 84 tablet 01/14/2024 01/13/2025 Active traMADol (Ultram) 50 MG tablet Take 1 (one) tablet by mouth every 6 hours as needed for Pain 28 tablet 1 04/22/2024 Active Active Problems Problem Noted Date Diagnosed Date History of total left knee replacement 4 Primary osteoarthritis of right knee 08/12/2019 Social History Tobacco Use Types Packs/Day Years Used Date Smoking Tobacco: Never Smokeless Tobacco: Never Tobacco Cessation:Counseling Given: Not Answered Alcohol Use Standard Drinks/Week Comments Yes 0 (1 standard drink = 0.6 oz pur e alcohol) occas OASIS D0700: Social Isolation Answer Da te Recorded Frequency of experiencing loneliness or isolatio n Never 01/29/2024 OASIS A1250: Transportation Answer Date Recorded Lack of Transportation (Medical) No 01/29/2024 Lack of Transportation (Non-Medical) No 01/29/2024 Patient Unable or Declines to Respond No 01/29/2024 OASIS B1300: Health Literacy Answer Charles e Recorded Frequency of needing help to read materials from doctor or pharmacy Never 01/29/2024 AUDIT-C Answer Date Recorded Q1: How often do you have a drink containing alcohol? Never 02/17/2024 Q2: How many drinks containi ng alcohol do you have on a typical day when you are drinking? Patient does not drink Q3: How often do you have si x or more drinks on one occasion? Never 02/17/2024 Overall Financial Resource Strain (CARDIA) Answe r Date Recorded How hard is it for you to pa y for the very basics like food, housing, medical care, and heating? Not hard at all 02/17/2024 PHQ-2 Answer Date Recorded Patient Health Questionnaire-2 Score 0 05/10/2024 [facility] - Occupational Stress Questionnaire Answer Date Recorded Do you feel stress - tense, restless, nervous, or anxious, or unable to sleep at night because your mind is troubled all the time - these days? Not at all 02/17/2024 Hunger Vital Sign Answer Date Recorded Within the past 12 months, y ou worried that your food would run out before you got the money to buy more. Never true 02/17/20 Within the past 12 months, t he food you bought just didn't last and you didn't have money to get more. Never true 02/17/2024 PRAPARE - Transportation Answer Date Re corded In the past 12 months, has l ack of transportation kept you from medical appointments or from getting medications? No 01/25 In the past 12 months, has l ack of transportation kept you from meetings, work, or from getting things needed for daily living? No 02/17/2024 Housing Stability Vital Sign Answer Charles e Recorded In the last 12 months, was t here a time when you were not able to pay the mortgage or rent on time? No 02/17/2024 In the last 12 months, how many places have you lived? 1 02/17/2024 In the last 12 months, was t here a time when you did not have a steady place to sleep or slept in a usp (including now)? No 02/17/2024 Sex and Gender Information Value Date Recorded Sex Assigned at Female 12/22/2023 8:58 AM CDT Gender Identity Not on file Sexual Orientation Not on file Last Filed Vital Signs Vital Sign Reading Time Taken Comments Blood Pressure 156/76 02/18/2024 3:47 PM CDT Pulse 64 02/18/2024 3:47 PM CDT Temperature 37.1 C (98.8 F) 02/18/2024 3:47 PM CDT Respiratory Rate 18 02/18/2024 3:47 PM CDT Oxygen Saturation 97% 02/18/2024 3:47 PM CDT Inhaled Oxygen Concentration - - Weight 128.8 kg (284 lb) 02/16/2024 5:24 PM CDT Height 175.3 cm (5' 9 ) 02/16/2024 5:24 PM CDT Body Mass Index 41.94 02/16/2024 5:24 PM CDT Functional Status Functional Status Response Date of Assess ment Is person deaf or have serious hearing difficult y? No 02/17/2024 Is person blind or have serious difficulty seein g? No 02/17/2024 Does person have serious dif ficulty walking/climbing stairs? Yes 02/17/2024 Does person have difficulty dressing/bathing? No 02/17/2024 Does person have difficulty doing errands alone? No 02/17/2024 Cognitive Status Response Date of Assessm ent Does person have difficulty concentrating/remembering/making decisions? No 02/17/2024 Plan of Treatment Not on file Medical Devices Implanted Type Area Veneer Jointer Device Identifier Shelf Expiration Date Model / Serial / Lot Cmnt Bone Djo Srg Cblt 40gm Hvisc Strl Implanted:Qty : 1 on 07/16/2020 by Pop Phillips MD at [facility] Right: Knee [employer] 11/14/2020 [id number] / / [id number] Cmpnt Fem Kn Rt Cr Cmnt Prm Vngrd Intlk Implanted:Qty : 1 on 07/16/2020 by Pop Phillips MD at [facility] Right: Knee [employer] 03/16/2039 [id number] / / [id number] Tray Tib 75mm Kn Cocr I Beam Implanted:Qty : 1 on 07/16/2020 by Pop Phillips MD at [facility] Right: Knee [employer] 05/16/2030 [id number] / / [id number] Cmpnt Ptlr 28mm 1 Pg Wire Ascnt Arcm Kn Implanted:Qty : 1 on 07/16/2020 by Pop Phillips MD at [facility] Right: Knee [employer] 05/16/2025 [id number] / / [id number] Brng [id number] Vngrd Arcm Kn Ant Stab Implanted:Qty : 1 on 07/16/2020 by Pop Phillips MD at [facility] Right: Knee [employer] 10/14/2024 [id number] / / [id number] Tray Tib 71mm Kn Cocr I Beam Implanted:Qty : 1 on 01/14/2024 by Pop Phillips MD at [facility] Left: Knee [employer] 12/10/2033 [id number] / / [id number] Cmnt Bone Plc R 40gm Grn Implanted:Qty : 1 on 01/14/2024 by Pop Phillips MD at [facility] Left: Knee [employer] 03/26/2026 [id number] / / [id number] Cmpnt Ptlr Std 28mm 3 Pg Kn Ser A Implanted:Qty : 1 on 01/14/2024 by Pop Phillips MD at [facility] Left: Patella [employer] 03/12/2028 [id number] / / [id number] Cmpnt Fem Kn Lt Cr Cmnt Prm Vngrd Intlk Implanted:Qty : 1 on 01/14/2024 by Pop Phillips MD at [facility] Left: Knee [employer] 09/25/2033 [id number] / / [id number] Brng [id number] Vngrd Arcm Kn Ant Stab Implanted:Qty : 1 on 02/15/2024 by Pop Phillips MD at [facility] Left: Knee [employer] 05/22/2028 [id number] / / [id number] Cmpnt Tibtry Kn Prm Lck Bar Bmt As Mx Implanted:Qty : 1 on 02/15/2024 by Pop Phillips MD at [facility] Left: Knee [employer] 11/23/2033 [id number] / / [id number] Explanted Type Area Veneer Jointer Device Identifier Shelf Expiration Date Model / Serial / Lot Souleymane Unassigned [id number] Vngrd Kn Implanted:Qty: 1 on 01/14/2024 by Pop Phillips MD at [facility] Explanted:Qty: 1 on 02/15/2024 by Pop Phillips MD at [facility] Left: Knee [employer] 03/14/2027 [id number] / / [id number] Procedures Procedure Name Priority Date/Time Associated Diagnosis Comments BASIC METABOLIC PANEL (CALCIUM TOTAL) AM Draw 02/18/2024 6:44 AM CDT Abscess of left knee from Last 3 Months or Most Recently Relevant to Health Maintenance Results * (ABNORMAL) BASIC METABOLIC PANEL (CALCIUM TOTAL) (02/18/2024 6:44 AM CDT) Pathologist [facility] Glucose 100 70 - 105 mg/dL 02/18/2024 7:06 AM CDT [facility] Sodium 143 136 - 145 mmol/L 02/18/2024 7:06 AM CDT [facility] Potassium 4.6 3.5 - 5.1 mmol/L 02/18/2024 7:06 AM CDT [facility] Chloride 112(H) 98 - 107 mmol/L 02/18/2024 7:06 AM CDT [facility] CO2 22 22 - 29 mmol/L 02/18/2024 7:06 AM CDT [facility] Calcium 8.9 8.4 - 10.4 mg/dL 02/18/2024 7:06 AM CDT [facility] Anion Gap 9 6 - 16 mmol/L 02/18/2024 7:06 AM CDT [facility] BUN 8 7 - 26 mg/dL 02/18/2024 7:06 AM CDT [facility] Creatinine 0.78 0.57 - 1.11 mg/dL 02/18/2024 7:06 AM CDT [facility] eGFR by CKD-EPI 90 >=90 mL/min/1.7 3 m2 02/18/2024 7:06 AM CDT [facility] Blood BLOOD SPECIMEN / Unknown Venipuncture / Unknown 02/18/2024 6:44 AM CDT 02/18/2024 6:47 AM CDT Jean-Pierre Scruggs II, DO LAB - CHEMISTRY [facility] [address] [place] [address] from Last 3 Months or Most Recently Relevant to Health Maintenance Advance Directives Documents on File Type Date Recorded Patient Health Informatics Instructor Expl anation Adv Directive/Living Will/POA 07/18/2020 8:08 PM * Full Code (Latest Code Status on File) Date Activated Date Inactivated Comments 02/15/2024 8:53 PM 02/18/2024 7:46 PM * Full Code Date Activated Date Inactivated Comments 01/14/2024 10:18 AM 01/15/2024 1:09 PM * Full Code Date Activated Date Inactivated Comments 07/16/2020 12:13 PM 07/17/2020 2:40 PM Care Teams Air Conditioning Installer Supervisor Relationship Specialty Start Date End Date Coeltte Hernandez MD [address] [place] [address] PCP - General Family Medicine 08/09/19 [place] [address] [place] [address] Orthopedic Surgery 08/09/19
--- OUTSIDE RECORDS SUMMARY | 2024-09-12 13:31 | XMS_ITS | Clinical Summary ---
Author Organization [facility] [employer] Address [address] [place] [address] Care Team Providers Care Logistics Coordinator Name Role Phone Colette Hernandez MD Primary Care Provider [phone] Pop Phillips MD Unavailable [phone] Source Comments [facility] Affiliates and Associated Physician Practices is amultiple site organization consisting of ambulatory clinics and hospital sitesin [place], [place], [place] and [place]. This disclosure is being madepursuant to the Care Everywhere program and may not contain all information available regarding this patient. Last updated 18.[facility] Allergies Active Allergy Reactions Criticality Noted Date [...] BEDTIME NEEDED FOR MUSCLE SPASTICITY 10/16/2023 Active Dillon-3 Fatty Acids (FISH OIL CONCENTRATE PO)Indications:OLIVER PPLEMENT Reasons: SUPPLEMENT Activ e B Mgkhbtf-A-Axeak Acid (vitamin B complex with C)Indications:SUP PLEMENT [...] Date History of total left knee replacement Primary osteoarthritis of right knee 08/12/2019 Encounters Date Type Department Care Team Description 07/07/2024 Telephone [facility] [address] [place] [address], [address] [address] Pop Phillips MD Letter 06/15/2024 Refill [facility] [address] [place] [address], [address] [phone] Raul Walter, [employer] Refill Request from Last 3 Months Social History Tobacco Use Types Packs/Day Years [...] Patient Health Questionnaire-2 Score 0 05/10/2024 [facility] - Occupational Stress [...] place to sleep or slept in a long-term (including now)? No 02/17/2024 Sex and Gender [...] Mass Index 41.94 02/16/2024 5:24 PM CDT Plan of Treatment Health Maintenance Due Date Last Done Comments COLOGUARD (AGES 45-75) - COLON CA SCREENING 1969 COLON MONITORING 1969 COLONOSCOPY - COLON CA SCREENING 1969 CT COLONOGRAPHY - COLON CA SCREENING 1969 Colorectal Cancer Screening 1969 FIT - COLON CA SCREENING 1969 FLEX SIG - COLON CA SCREENING 1969 LIPID TESTING 1969 MAMMOGRAM 1969 PAP SMEAR 1969 HIV SCREENING 1984 HEPATITIS C SCREENING 11/28/1987 DTAP/TDAP/TD VACCINES (1 - Tdap) 1988 HEPATITIS B VACCINE (1 of 3 - 19+ 3-dose series) 1988 PNEUMOCOCCAL VACCINE 50+ (1 of 1 - PCV) 12/03/2019 ZOSTER VACCINE (1 of 2) 12/03/2019 COVID-19 VACCINE (1 - 2023- season) 2024 INFLUENZA VACCINE (#1) 2024 DEPRESSION SCREENING 07/27/2024 12/10/2023 SCREENING FOR DIABETES 02/17/2027 , 02/15/2024, 12/23/2023, Additional history exists HIB VACCINE Aged Out No longer eligi ble based on patient's age to complete this topic HPV VACCINE Aged Out No longer eligi ble based on patient's age to complete this topic MENINGOCOCCAL (Group B) VACCINE Aged Out No longer eligible based on patient's age to complete this topic MENINGOCOCCAL VACCINE Aged Out No love roberto eligible based on patient's age to complete this topic Medical Devices Implanted Type Area Registered Nurse Device Identifier Shelf Expiration Date Model / Serial / Lot Cmnt Bone Djo Srg Cblt 40gm Hvisc Strl Implanted:Qty : 1 on 07/16/2020 by Pop Phillips MD at [facility] Right: Knee [employer] 11/14/2020 [id number] 0 / / [id number] Cmpnt Fem Kn Rt Cr Cmnt Prm Vngrd Intlk Implanted:Qty : 1 on 07/16/2020 by Pop Phillips MD at [facility] Right: Knee [employer] 03/16/2039 [id number] / / [id number] Tray Tib 75mm Kn Cocr I Beam Implanted:Qty : 1 on 07/16/2020 by Pop Phillips MD at [facility] Right: Knee [employer] 05/16/2030 [id number] / / [id number] Cmpnt Ptlr 28mm 1 Pg Wire Ascnt Arcm Kn Implanted:Qty : 1 on 07/16/2020 by Pop Phillips MD at [facility] Right: Knee [employer] 05/16/2025 [id number] / / [id number] Vngrd Arcm Kn Ant Stab Implanted:Qty : 1 on 07/16/2020 by Pop Phillips MD at [facility] Right: Knee [employer] 10/14/2024 [id number] / / [id number] Tray Tib 71mm Kn Cocr I Beam Implanted:Qty : 1 on 01/14/2024 by Pop Phillips MD at [facility] Left: Knee [employer] 12/10/2033 [id number] / / [id number] Cmnt Bone Plc R 40gm Grn Implanted:Qty : 1 on 01/14/2024 by Pop Phillips MD at [facility] Left: Knee [employer] 03/26/2026 [id number] / / [id number] Cmpnt Ptlr Std 28mm 3 Pg Kn Ser A Implanted:Qty : 1 on 01/14/2024 by Pop Phillips MD at [facility] Left: Patella [employer] 03/12/2028 [id number] / / [id number] Cmpnt Fem Kn Lt Cr Cmnt Prm Vngrd Intlk Implanted:Qty : 1 on 01/14/2024 by Pop Phillips MD at [facility] Left: Knee [employer] 09/25/2033 [id number] / / [id number] Brng [id number] Vngrd Arcm Kn Ant Stab Implanted:Qty : 1 on 02/15/2024 by Pop Phillips MD at [facility] Left: Knee [employer] 05/22/2028 [id number] / / [id number] Cmpnt Tibtry Kn Prm Lck Bar Bmt As Mx Implanted:Qty : 1 on 02/15/2024 by Pop Phillips MD at [facility] Left: Knee [employer] 11/23/2033 [id number] / / [id number] Explanted Type Area Registered Nurse Device Identifier Shelf Expiration Date Model / Serial / Lot Brng Unassigned [id number] Vngrd Kn Implanted:Qty: 1 on 01/14/2024 by Ppo Phillips MD at [facility] Explanted:Qty: 1 on 02/15/2024 by Pop Phillips MD at [facility] Left: Knee [employer] 03/14/2027 [id number] / / [id number] Procedures Procedure Name Priority Date/Time Associated Diagnosis Comments BASIC METABOLIC PANEL (CALCIUM TOTAL) AM Draw 02/18/2024 6:44 AM CDT Abscess of left knee from Last 3 Months or Most Recently Relevant to Health Maintenance Results * (ABNORMAL) BASIC METABOLIC PANEL (CALCIUM TOTAL) (02/18/2024 6:44 AM CDT) [facility] Glucose 100 70 - 105 mg/dL 02/18/2024 7:06 AM CDT [facility] Sodium 143 136 - 145 mmol/L 02/18/2024 7:06 AM CDT [facility] Potassium 4.6 3.5 - 5.1 mmol/L 02/18/2024 7:06 AM CDT [facility] Chloride 112(H) 98 - 107 mmol/L 02/18/2024 7:06 AM CDT [facility] CO2 22 22 - 29 mmol/L 02/18/2024 7:06 AM CDT [facility] Calcium 8.9 8.4 - 10.4 mg/dL 02/18/2024 7:06 AM CDT [facility] Anion Gap 9 6 - 16 mmol/L 02/18/2024 7:06 AM CDT [facility] BUN 8 7 - 26 mg/dL 02/18/2024 7:06 AM CDT [facility] Creatinine 0.78 0.57 - 1.11 mg/dL 02/18/2024 7:06 AM T [facility] eGFR by CKD-EPI 90 >=90 mL/min/1.7 3 m2 02/18/2024 7:06 AM CDT [facility] Blood BLOOD SPECIMEN / Unknown Venipuncture / Unknown 02/18/2024 6:44 AM CDT 02/18/2024 6:47 AM CDT Jean-Pierre Scruggs II, LAB - CHEMISTRY OSVALDO VARELA [facility] [id number] [place] [id number] from Last 3 Months or Most Recently Relevant to Health Maintenance Advance Directives Documents on File Type Date Recorded Patient [employer] Expl anation Adv Directive/Living Will/POA 07/18/2020 8:08 PM * Full Code (Latest Code Status on File) Date Activated Date Inactivated Comments 02/15/2024 8:53 PM 02/18/2024 7:46 PM * Full Code Date Activated Date Inactivated Comments 01/14/2024 10:18 AM 01/15/2024 1:09 PM * Full Code Date Activated Date Inactivated Comments 07/16/2020 12:13 PM 07/17/2020 2:40 PM Care Teams Logistics Coordinator Relationship Specialty Start Date End Date Colette Hernandez MD [address] [place] [address] PCP - General Family Medicine 08/09/19 [place] [address] [place] [id number] Orthopedic Surgery 08/09/19
--- OUTSIDE RECORDS SUMMARY | 2024-09-12 13:31 | XMS_ITS | Patient Health Summary ---
Author Organization [facility] Address [address] [place] [address] Care Team Providers Care Fleet Technician Name Role Phone Colette Hernandez MD Primary Care Provider [phone] Pop Phillips MD Unavailable [phone] Note from [facility],non-owned Affiliates and Associated Physician Practices is amultiple site organization consisting of ambulatory clinics and hospital sitesin [place], [place], [place] and [place]. This disclosure is being madepursuant to the Care Everywhere program and may not contain all information available regarding this patient. Last updated 18.[facility] Allergies * Erythromycin(Nausea and/or Vomiting) * Simvastatin(Hepatic Injury) -High Criticality Medications * Be aware that medications may not be up to date on this document. Alwaysverify current medications with the patient. * zolpidem (AMBIEN) 10 MG tablet(Started 07/18/2019) Take 1 (one) tablet by mouth once daily as needed for Insomnia Reasons: Trouble Sleeping * venlafaxine (EFFEXOR) 75 MG tablet(Started 01/19/2023) Take 0.5 (one-half) tablet by mouth once daily 37.5 MG DAILY Reasons: Major Depressive Disorder * lamoTRIgine (LAMICTAL) 25 MG tablet Take 1 (one) tablet by mouth 2 times daily Reasons: Depressive Phase of Manic-Depression * CRANBERRY PO Take by mouth once daily Reasons: SUPPLMENT * Juonpntwh-Svpnzziblcg-Cxq D (OSTEO BI-FLEX ONE PER DAY PO) Take by mouth once daily Reasons: SUPPLEMENT * Multiple Vitamins-Minerals (CENTRUM SILVER ULTRA WOMENS PO) Take by mouth once daily Reasons: SUPPLEMENT * Multiple Vitamins-Minerals (HAIR SKIN AND NAILS FORMULA PO) Take by mouth once daily Reasons: SUPPLEMENT * Nutritional Supplements (ESTROVEN PO) * calcium carbonate - vitamin D (CALCIUM+D3) 600-800 MG-UNIT tablet Take 1 (one) tablet by mouth daily with breakfast Reasons: SUPPLEMENT * PROAIR HFA 108 (90 Base) MCG/ACT inhaler(Started 06/29/2020) Inhale 1 (one) puff by mouth every 6 hours as needed Reasons: SOB, WHEEZING * aspirin (ASPIRIN) 81 MG chew tablet(Started 07/17/2020) Take 1 tablet by mouth 2 times daily with morning and evening meal for 42 days Take for blood clot prevention for 6 weeks * tiZANidine (Zanaflex) 4 MG tablet(Started 10/16/2023) 4 MG ORALLY EVERY DAY AT BEDTIME NEEDED FOR MUSCLE SPASTICITY * [place]-3 Fatty Acids (FISH OIL CONCENTRATE PO) Reasons: SUPPLEMENT * B Sifngev-C-Cvqde Acid (vitamin B complex with C) Take by mouth once daily Reasons: SUPPLEMENT * Ascorbic Acid (SUPER C COMPLEX PO) Reasons: SUPPLEMENT * diclofenac sodium (Voltaren) 1 % gel(Started 01/16/2024) Apply 4 (four) g to affected area 4 times daily Reasons: Joint Damage causing Pain and Loss of Function * acetaminophen (Tylenol) 325 MG tablet(Started 02/16/2024) Take 2 (two) tablets by mouth every 6 hours as needed Maximum allowable Acetaminophen amount = 4 Grams (4000 mg) / 24 hours. * docusate sodium (Colace) 100 MG capsule(Started 02/16/2024) Take 1 (one) capsule by mouth 2 times daily * celecoxib (CeleBREX) 200 MG capsule(Started 02/28/2024) Take 1 (one) capsule by mouth once daily * omeprazole (PriLOSEC) 20 MG capsule(Started 03/18/2024) Take 1 (one) capsule by mouth daily before breakfast for 90 days Reasons: Heartburn * oxyCODONE, immediate release, (Roxicodone) 10 MG tablet(Started 03/24/2024) Take 0.5 (one-half) tablet to 1 (one) tablet by mouth every 4 hours as needed for Pain (pain) * cefadroxil (Duricef) 500 MG capsule(Started 03/30/2024) * aspirin (Aspirin) 81 MG chew tablet(Started 01/14/2024) CHEW AND SWALLOW 1 TABLET BY MOUTH TWO TIMES A DAY FOR 42 DAYS FOR BLOOD CLOT PREVENTION * traMADol (Ultram) 50 MG tablet(Started 04/22/2024) Take 1 (one) tablet by mouth every 6 hours as needed for Pain 1 refill by 10/19/2024 Active Problems Problem Noted Date Diagnosed Date [...] Recorded Patient Health Questionnaire-2 Score 0 05/10/2024 [facility] of Occupat ional Health - Occupational Stress [...] place to sleep or slept in a senior care (including now)? No 02/17/2024 Sex and Gender [...] Mass Index 41.94 02/16/2024 5:24 PM CDT Medical Devices Implanted Type Area Accounts Payable Administrator Device Identifier Shelf Expiration Date Model / Serial / Lot Cmnt Bone Djo Srg Cblt 40gm Hvisc Strl Implanted:Qty : 1 on 07/16/2020 by oPp Phillips MD at [facility] Right: Knee [employer] 11/14/2020 [id number] 0 / / [id number] Cmpnt Fem Kn Rt Cr Cmnt Prm Vngrd Intlk Implanted:Qty : 1 on 07/16/2020 by Pop Phillips MD at [facility] Right: Knee [employer] 03/16/2039 [id number] / / [id number] Tray Tib 75mm Kn Cocr I Beam Implanted:Qty : 1 on 07/16/2020 by Pop Phillips MD at [facility] Right: Knee [employer] 05/16/2030 [id number] / / [id number] Cmpnt Ptlr 28mm 1 Pg Wire Ascnt Arcm Kn Implanted:Qty : 1 on 07/16/2020 by Pop Phillips MD at [facility] Right: Knee [employer] 05/16/2025 [id number] / / [id number] Brng [id number] Vngrd Arcm Kn Ant Stab Implanted:Qty : 1 on 07/16/2020 by Pop Phillips MD at [facility] Right: Knee [employer] 10/14/2024 [id number] / / [id number] Tray Tib 71mm Kn Cocr I Beam Implanted:Qty : 1 on 01/14/2024 by Pop Phillips MD at [facility] Left: Knee [employer] 12/10/2033 [id number] / / [id number] Cmnt Bone Plc R 40gm Grn Implanted:Qty : 1 on 01/14/2024 by Pop Phillips MD at [facility] Left: Knee [employer] 03/26/2026 [id number] / / [id number] Cmpnt Ptlr Std 28mm 3 Pg Kn Ser A Implanted:Qty : 1 on 01/14/2024 by Pop Phillips MD at [facility] Left: Patella [employer] 03/12/2028 [id number] / / [id number] Cmpnt Fem Kn Lt Cr Cmnt Prm Vngrd Intlk Implanted:Qty : 1 on 01/14/2024 by Pop Phillips MD at [facility] Left: Knee [employer] 09/25/2033 [id number] / / [id number] Brng [id number] Vngrd Arcm Kn Ant Stab Implanted:Qty : 1 on 02/15/2024 by Pop Phillips MD at [facility] Left: Knee [employer] 05/22/2028 [id number] / / [id number] Cmpnt Tibtry Kn Prm Lck Bar Bmt As Mx Implanted:Qty : 1 on 02/15/2024 by Pop Phillips MD at [facility] Left: Knee [employer] 11/23/2033 [id number] / / [id number] Explanted Type Area Accounts Payable Administrator Device Identifier Shelf Expiration Date Model / Serial / Lot Brng Unassigned [id number] Vngrd Kn Implanted:Qty: 1 on 01/14/2024 by Pop Phillips MD at [facility] Explanted:Qty: 1 on 02/15/2024 by Pop Phillips MD at [facility] Left: Knee [employer] 03/14/2027 [id number] / / [id number] Procedures * DIFFERENTIAL MANUAL(Performed 02/18/2024) Performed for Abscess of left knee * VANCOMYCIN LEVEL TROUGH(Performed 02/18/2024) * BASIC METABOLIC PANEL (CALCIUM TOTAL)(Performed 02/18/2024) Performed for Abscess of left knee * CBC W AUTO DIFFERENTIAL(Performed 02/18/2024) Performed for Abscess of left knee * PT EVAL AND TREAT(Performed 02/15/2024) * CULTURE WOUND+GRAM STAIN(Performed 02/15/2024) Performed for Abscess of left knee * CULTURE ANAEROBE(Performed 02/15/2024) Performed for Abscess of left knee * CULTURE TISSUE+GRAM STAIN(Performed 02/15/2024) Performed for Abscess of left knee * CULTURE ANAEROBE(Performed 02/15/2024) Performed for Abscess of left knee * ENDOTRACHEAL TUBE NOTE(Performed 02/15/2024) * OH INCIS/DRAIN THIGH/KNEE ABSCESS,DEEP(Performed 02/15/2024) * BASIC METABOLIC PANEL (CALCIUM TOTAL)(Performed 02/15/2024) Performed for Preop examination * CBC W AUTO DIFFERENTIAL(Performed 02/15/2024) Performed for Preop examination * CULTURE BLOOD(Performed 02/15/2024) Performed for Preop examination * XR KNEE LEFT 2VW OR LESS(Performed 02/15/2024) Performed for Primary osteoarthritis of left knee * HOME CPAP/BIPAP FOR HOSP USE: NOCTURNAL 02(Performed 01/14/2024) * NEURAXIAL BLOCK(Performed 01/14/2024) * OH TOTAL KNEE REPLACEMENT(Performed 01/14/2024) * EKG 12-LEAD(Performed 12/23/2023) Performed for Preop examination * COMPREHENSIVE METABOLIC PANEL(Performed 12/23/2023) Performed for Preop examination * CBC W AUTO DIFFERENTIAL(Performed 12/23/2023) Performed for Preop examination * XR KNEE BILAT 3VW(Performed 12/10/2023) Performed for Left knee pain, unspecified chronicity, Presence of right artificial knee joint * XR KNEE RIGHT 3VW(Performed 08/27/2020) Performed for Chronic pain of right knee * HGB HCT PANEL(Performed 07/17/2020) Performed for Primary osteoarthritis of right knee * BASIC METABOLIC PANEL (CALCIUM TOTAL)(Performed 07/17/2020) Performed for Primary osteoarthritis of right knee * NEURAXIAL BLOCK(Performed 07/16/2020) * ARTHROPLASTY TOTAL KNEE(Performed 07/16/2020) * HCG URINE QUALITATIVE(Performed 07/16/2020) Performed for Pre-op evaluation * SARS-COV-2 (COVID-19) IN HOUSE(Performed 07/13/2020) Performed for Preoperative testing * SARS-COV2 (COVID-19) PANEL (STL)(Performed 07/13/2020) Performed for Preoperative testing * COMPREHENSIVE METABOLIC PANEL(Performed 05/16/2020) Performed for Preop examination * CBC W AUTO DIFFERENTIAL(Performed 05/16/2020) Performed for Preop examination * EKG 12-LEAD(Performed 05/16/2020) Performed for Preop examination * XR KNEE RIGHT 4VW OR MORE(Performed 03/23/2020) Performed for Primary osteoarthritis of right knee Results * (ABNORMAL) DIFFERENTIAL MANUAL (02/18/2024 6:44 AM CDT) Neutrophil % 65 41 - 74 % 02/18/2024 7:45 AM CDT [facility] Lymphocyte % 14(L) 17 - 47 % 02/18/2024 7:45 AM CDT [facility] Monocyte % 4 3 - 11 % 02/18/2024 7:45 AM CDT [facility] Eosinophil % 12(H) 0 - 7 % 02/18/2024 7:45 AM CDT [facility] Metamyelocyte % 2(H) 0% % 7:45 AM CDT [facility] Myelocyte % 3(H) 0% % 02/18/2024 7:45 AM CDT [facility] Neutrophil Absolute 3.51 1.60 - 7.50 x10E9/L 02/18/2024 7:45 AM CDT [facility] Lymphocyte Absolute 0.76(L) 1.00 - 4.40 x10E9/L 02/18/2024 7:45 AM CDT [facility] Monocyte Absolute 0.22 0.15 - 1.00 x10E9/L 02/18/2024 7:45 AM CDT [facility] Eosinophil Absolute 0.65(H) 0.00 - 0.60 x10E9/L 02/18/2024 7:45 AM CDT [facility] RBC Morphology REVIEWED 02/18/2024 7:45 AM CDT [facility] Platelet Clumps PRESENT(A) (none) 7:45 AM CDT [facility] Blood BLOOD SPECIMEN / Unknown Venipuncture / Unknown 02/18/2024 6:44 AM CDT 02/18/2024 6:47 AM CDT Jean-Pierre Scruggs II, DO LAB - HEMATOLOGY ORD ERABLES [facility] [address] [place] [address] * (ABNORMAL) CBC W AUTO DIFFERENTIAL (02/18/2024 6:44 AM CDT) Only the most recent of4 resultswithin the time period is included. [facility] WBC 5.4 4.0 - 10.7 x10E9/L 02/18/2024 7:45 AM CDT [facility] RBC Count 3.00(L) 3.90 - 5.20 x10E12/L 02/18/2024 7:45 AM CDT [facility] Hemoglobin 8.9(L) 11.9 - 15.8 g/dL 02/18/2024 7:45 AM CDT [facility] Hematocrit 27.1(L) 34.8 - 46.1 % 02/18/2024 7:45 AM CDT [facility] MCV 90.3 80.0 - 98.0 fL 02/18/2024 7:45 AM CDT [facility] MCH 29.7 26.7 - 33.6 pg 02/18/2024 7:45 AM CDT [facility] MCHC 32.8 31.7 - 36.3 g/dL 02/18/2024 7:45 AM CDT [facility] RDW-CV 13.2 11.3 - 14.8 % 02/18/2024 7:45 AM CDT [facility] Platelet Count 220 150 - 420 x10E9/L 02/18/2024 7:45 AM CDT [facility] MPV 9.4 7.8 - 11.4 fL 02/18/2024 7:45 AM CDT [facility] Blood BLOOD SPECIMEN / Unknown Venipuncture / Unknown 02/18/2024 6:44 AM CDT 02/18/2024 6:47 AM CDT Jean-Pierre Scruggs II, DO LAB - HEMATOLOGY ORD ERABLES Performing Organization Address City/State/[facility] Co de Phone Number [facility] [address] [place] [address] * (ABNORMAL) BASIC METABOLIC PANEL (CALCIUM TOTAL) (02/18/2024 6:44 AM CDT) Only the most recent of3 resultswithin the time period is included. [facility] Glucose 100 70 - 105 mg/dL 02/18/2024 7:06 AM CDT [facility] Sodium 143 136 - 145 mmol/L 02/18/2024 7:06 AM CDT [facility] Potassium 4.6 3.5 - 5.1 mmol/L 02/18/2024 7:06 AM CDT [facility] Chloride 112(H) 98 - 107 mmol/L 02/18/2024 7:06 AM CDT [facility] CO2 22 22 - 29 mmol/L 02/18/2024 7:06 AM CDT [facility] Calcium 8.9 8.4 - 10.4 mg/dL 02/18/2024 7:06 AM CDT [facility] Anion Gap 9 6 - 16 mmol/L 02/18/2024 7:06 AM CDT [facility] BUN 8 7 - 26 mg/dL 02/18/2024 7:06 AM CDT [facility] Creatinine 0.78 0.57 - 1.11 mg/dL 02/18/2024 7:06 AM CDT [facility] eGFR by CKD-EPI 90 >=90 mL/min/1.7 3 m2 02/18/2024 7:06 AM CDT [facility] Blood BLOOD SPECIMEN / Unknown Venipuncture / Unknown 02/18/2024 6:44 AM CDT 02/18/2024 6:47 AM CDT Jean-Pierre Scruggs II, DO LAB - CHEMISTRY OSVALDO VARELA Performing Organization Address [facility]/ZIP Co de Phone Number [facility] [address] [place] [address] * VANCOMYCIN LEVEL TROUGH (02/18/2024 6:44 AM CDT) Vancomycin Trough 14.6 10.0 - 20.0 ug/mL 02/18/2024 7:06 AM CDT [facility] Blood BLOOD SPECIMEN / Unknown Venipuncture / Unknown 02/18/2024 6:44 AM CDT 02/18/2024 6:47 AM CDT Everardo Saenz MD LAB - CHEMISTRY OSVALDO VARELA Performing Organization Address City/[facility]/ZIP Co de Phone Number [facility] [address] [place] [address] * CULTURE WOUND+GRAM STAIN (02/15/2024 7:36 PM CDT) Culture No growth JOYCE 02/18/2024 7:22 AM CDT [facility] Gram Stain Light Polymorphonuclear cells 02/18/2024 7:22 AM CDT [facility] Gram Stain No organisms seen 024 7:22 AM CDT [facility] Microbiology SOFT TISSUE BIOPSY SPECIMEN / Unknown 02/15/2024 7:36 PM CDT 02/15/2024 8:18 PM CDT Narrative [facility] - 02/18/2024 7:22 AM CDT Surgical Description: Left Knee Deep Tissue Culture Pop Phillips MD LAB - MICROBIOLOGY O ANYA Performing Organization Address City/[facility]/ZIP Co de Phone Number [facility] [address] [place] [address], [facility] [phone] * CULTURE ANAEROBE (02/15/2024 7:36 PM CDT) Only the most recent of2 resultswithin the time period is included. Culture No anaerobic organisms isolated JOYCE 02/21/2024 7:19 AM CDT [facility] Microbiology SOFT TISSUE BIOPSY SPECIMEN / Unknown 02/15/2024 7:36 PM CDT 02/15/2024 8:18 PM CDT Narrative [facility] - 02/21/2024 7:19 AM CDT Surgical Description: Left Knee Deep Tissue Culture Pop Phillips MD LAB - MICROBIOLOGY O ANYA Performing Organization Address City/[facility]/ZIP Co de Phone Number [facility] [address] [place] [address], [facility] [phone] * (ABNORMAL) CULTURE TISSUE+GRAM STAIN (02/15/2024 7:29 PM CDT) Culture Rare Staphylococcus aureus(AA) JOYCE 02/19/2024 6:07 AM CDT [facility] Comment:Staphylococcus aureu s methicillin-susceptible (MSSA) detected by penicillin binding protein immunoassay. Gram Stain Light Polymorphonuclear cells 02/19/2024 6:07 AM CDT [facility] Gram Stain Heavy Red blood cells 02/19/2024 6:07 AM CDT [facility] Gram Stain No organisms seen 024 6:07 AM CDT [facility] Microbiology TISSUE SPECIMEN / Unknown 02/15/2024 7:29 PM CDT 02/15/2024 8:18 PM CDT Narrative [facility] - 02/19/2024 6:07 AM CDT Surgical Description: Left Knee Deep Tissue Culture Swab Organism Antibiotic Method Susceptibility Staphylococcus aureus Cefazolin JOYCE Susceptible Staphylococcus aureus Clindamycin JOYCE 0.25 ug/mL: Susceptible Staphylococcus aureus Doxycycline JOYCE <=0.5 ug/mL: Susceptible Staphylococcus aureus Inducible Clindamy sheridan Resistance JOYCE NEG ug/mL: Neg Staphylococcus aureus Oxacillin JOYCE 0.5 ug/mL: Susceptible Staphylococcus aureus Trimethoprim-sulfa methox azole JOYCE <=10 ug/mL: Susceptible Comment: Staphylococcus sensitivity to oxacillin predicts susceptibility for nafcillin, ampicillin/sulbactam, amoxicillin/clavulanate, piperacillin/tazobactam, all cephalosporins (except ceftazidime, ceftazidime/avibactam, ceftolozane/tazobactam), and all carbapenems. Pop Phillips MD LAB - MICROBIOLOGY O RDERABLES [facility] [address] [place], [place] [address], [facility] [phone] * ETT LINE PERFORMABLE (02/15/2024 7:05 PM CDT) Narrative Cristina Harrell APRN-CRNA - 02/15/2024 7:05 PM CDT Cristina Harrell APRN-CRNA 02/15/2024 7:05 PM Endotracheal Tube Placement: Patient Location: OR. Intubation Event Date/Time: 02/15/2024 6:56 PM Procedure: intubation ([id number]) Procedure Section: Sedation: under general anesthesia. Indications for Airway Management: anesthesia Induction: rapid sequence and cricoid pressure Patient Position: sniffing Mask Ventilation: easy with oral airway. Blade Type: Video Blade Size: 3 Laryngoscopy View: grade 1 (full cords) Intubation Adjuncts: video laryngoscope and stylet Tube: endotracheal tube Placement: oral Tube type: cuff - inflated Tube Size (MM): 7 Depth of Insertion (CM): 22 Measured From: lips Cuff volume (mL): 8 Cuff Inflated With: air Number of Attempts: 1. Placement Verified By: direct visualization, bilateral breath sounds, chest auscultation and CO2 monitor Tube secured with: adhesive tape and ETT yang. Dentition unchanged? Yes Difficult Airway? No. Procedure Start Time: 02/15/2024 6:56 PM. Staff Section Anesthesia Provider: Cristina Harrell APRN-CRNA, Performed the procedure Nancie Melton MD GENERAL ANESTHESI A ORDERABLES * CULTURE BLOOD (02/15/2024 3:58 PM CDT) Culture No growth day 5 JOYCE 02/20/2024 9:00 PM CDT [facility] Blood PERIPHERAL BLOOD / Unknown Venipuncture / Unknown 02/15/2024 3:58 PM CDT 02/15/2024 4:29 PM CDT Pop Phillips MD LAB - MICROBIOLOGY O ANYA Performing Organization Address [facility] Co de Phone Number [facility] [address] [phone] * XR KNEE LEFT 2VW OR LESS (02/15/2024 2:00 PM CDT) Narrative [facility] [address] - 02/15/2024 2:00 PM CDT Please see progress note in Epic for results. Pop Phillips MD DIAGNOSTIC IMAGING O ANYA Performing Organization Address [facility] Co de Phone Number [facility] [address] * Neuraxial Block (01/14/2024 7:34 AM CDT) Narrative Fortino Esteves APRN-CRNA - 01/14/2024 7:34 AM CDT Fortino Esteves APRN-CRNA 01/14/2024 7:35 AM Neuraxial Block Note Pre-Procedure: Procedure Name: Neuraxial Block Patient Location: OR Indications: surgical anesthesia Pre-Anesthetic Checklist: Patient identified, IV Checked, Risks and benefits discussed, Surgical consent verified, Monitors and equipment, Site examined, Pre-op evaluation done, Informed consent obtained, Questions answered/anesthesia questions answered and Allergies reviewed Anticoagulation/ Anti-thrombosis status confirmed? Yes Supplemental O2: room air Monitors: continuous pluse ox and BP Patient Condition: sedated, meaningful contact maintained throughout procedure Patient Sedated? Nursing sedation administration Sedation Type: mild Sedation Agents (manual): versed fentanyl mL Procedure: Block Type: Spinal Prep: Betadine Sterile Field: cap/hat, sterile established, sterile gloves and mask Approach: midline Skin was localized? Nursing documentation on [facility] Skin localized with: Lidocaine 1% and 1 mL Spinal Block: Needle Type: spinal needle Needle Gauge: 22 Needle Length: 90 mm Placement Site: L3-4 Number of Attempts: 1 CSF: free flow, aspiration before injection Local anesthetics used? Nursing documentation on the [facility] Spinal Local Anesthetic: Bupivacaine: 0.75% in dextrose 2 mL Degree of difficulty: none Procedure Tolerance: tolerated well performed while the patient was sedated Sensory Level: lower level Motor Blockade: Yes Position post procedure: supine Vital Signs: Vital signs monitored and stable throughout. See anesthesia record for details. Start Time: 01/14/2024 7:02 AM End Time: 01/14/2024 7:08 AM Total Time: 6 Staff: Anesthesia Provider: Fortino Esteves APRN-TECHNOLOGY LAB TEACHER - performed the procedure Calvin Astudillo MD GENERAL ANESTHESIA O RDERABLES * EKG 12-LEAD (12/23/2023 1:30 PM CDT) Only the most recent of2 resultswithin the time period is included. Ventricular Rate 65 BPM [facility] Atrial Rate 65 BPM [facility] P-R Interval 184 ms [facility] QRS Duration ms 86 ms [facility] Q-T Interval ms 374 ms [facility] QTC Calculation (Bezet) 388 ms [facility] Calculated P [place] 38 degrees [facility] Calculated R [place] 42 degrees [facility] Calculated T [place] 41 degrees [facility] Interpretation EKG Normal sinus rhythm Normal ECG When compared with ECG of 16-MAY-2020 13:40, No significant change was found Confirmed by MATTHEW CHOW, DANNI NEWMAN ([id number]) on 12/23/2023 7:22:42 PM [facility] 12/23/2023 1:30 PM CDT 12/23/2023 7:22 PM CDT Mikala Mayen DO ECG ORDERABLES [facility] * (ABNORMAL) COMPREHENSIVE METABOLIC PANEL (12/23/2023 1:19 PM CDT) Only the most recent of2 resultswithin the time period is included. Glucose 105 70 - 105 mg/dL 12/23/2023 1:41 PM CDT [facility] Sodium 144 136 - 145 mmol/L 12/23/2023 1:41 PM CDT [facility] Potassium 4.2 3.5 - 5.1 mmol/L 12/23/2023 1:41 PM CDT [facility] Chloride 110(H) 98 - 107 mmol/L 12/23/2023 1:41 PM CDT [facility] CO2 27 22 - 29 mmol/L 12/23/2023 1:41 PM CDT [facility] Calcium 8.9 8.4 - 10.4 mg/dL 12/23/2023 1:41 PM CDT [facility] Anion Gap 7 6 - 16 mmol/L 12/23/2023 1:41 PM CDT [facility] BUN 10 7 - 26 mg/dL 12/23/2023 1:41 PM CDT [facility] Creatinine 0.93 0.57 - 1.11 mg/dL 12/23/2023 1:41 PM CDT [facility] Alkaline Phosphatase 55 40 - 150 U/L 12/23/2023 1:41 PM CDT [facility] ALT 27 0 - 55 U/L 12/23/2023 1:41 PM CDT [facility] AST 25 5 - 34 U/L 12/23/2023 1:41 PM CDT [facility] Protein Total 5.9(L) 6.4 - 8.3 gm/dL 12/23/2023 1:41 PM CDT [facility] Albumin 3.4 3.4 - 5.0 gm/dL 12/23/2023 1:41 PM CDT [facility] Bilirubin Total 0.4 0.2 - 1.2 mg/dL 12/23/2023 1:41 PM CDT [facility] eGFR by CKD-EPI 73(L) >=90 mL/min/1.7 3 m2 12/23/2023 1:41 PM CDT [facility] Blood BLOOD SPECIMEN / Unknown Venipuncture / Unknown 12/23/2023 1:19 PM CDT 12/23/2023 1:23 PM CDT Gina Walter ROOFING SUBCONTRACTOR-OBSTETRICS TECHNICIAN LAB - CHEMI STRY ORDERABLES Performing Organization Address [facility]/ZIP Co de Phone Number [facility] [address] [place] [address] * XR KNEE BILAT 3VW (12/10/2023 3:03 PM CDT) Narrative [facility] [facility] [address] - 12/10/2023 3:09 PM CDT Please see progress note in Epic for results. Pop Phillips MD DIAGNOSTIC IMAGING O RDERABLES Performing Organization Address [facility] Co de Phone Number [facility] [address] * XR KNEE RIGHT 3VW (08/27/2020 3:07 PM REGIONAL ENVIRONMENTAL MANAGER) Anatomical Region Laterality Modality Lower Extremity Computed Radiogr aphy Narrative 08/27/2020 3:07 PM REGIONAL ENVIRONMENTAL MANAGER Arelis Rankin, RT(R) 08/27/2020 5:54 PM See progress notes for results Pop Phillips MD DIAGNOSTIC IMAGING O RDERABLES * (ABNORMAL) HGB HCT PANEL (07/17/2020 4:57 AM REGIONAL ENVIRONMENTAL MANAGER) Hemoglobin 11.1(L) 12.0 - 15.6 gm/dL 07/17/2020 5:25 AM REGIONAL ENVIRONMENTAL MANAGER [facility] Hematocrit 33.6(L) 35.9 - 45.5 % 07/17/2020 5:25 AM REGIONAL ENVIRONMENTAL MANAGER [facility] Blood BLOOD SPECIMEN / Unknown Venipuncture / Unknown 07/17/2020 4:57 AM REGIONAL ENVIRONMENTAL MANAGER 07/17/2020 5:13 AM REGIONAL ENVIRONMENTAL MANAGER Pop Phillips MD LAB - HEMATOLOGY ORD ERABLES Performing Organization Address [facility]/ZIP Co de Phone Number [facility] [address] [place] [address] * Neuraxial Block (07/16/2020 8:57 AM REGIONAL ENVIRONMENTAL MANAGER) Narrative Mike Torres APRN-CRNA - 07/16/2020 8:57 AM REGIONAL ENVIRONMENTAL MANAGER Mike Torres APRN-CRNA 07/16/2020 8:59 AM Neuraxial Block Note Pre-Procedure: Procedure Name: Neuraxial Block Patient Location: OR Indications: surgical anesthesia Pre-Anesthetic Checklist: Patient identified, IV Checked, Risks and benefits discussed, Surgical consent verified, Monitors and equipment, Site examined, Pre-op evaluation done, Time-out performed, Informed consent obtained, Questions answered/anesthesia questions answered and Allergies reviewed Anticoagulation/ Anti-thrombosis status confirmed? Yes Supplemental O2: room air Monitors: BP, continuous pluse ox and EKG Patient Condition: sedated, meaningful contact maintained throughout procedure Procedure: Block Type: Spinal Prep: Betadine Sterile Field: mask, cap/hat, sterile established and sterile gloves Approach: midline Spinal Block: Needle Type: spinal needle Needle Gauge: 25 Needle Length: 90 mm Placement Site: L4-5 Number of Attempts: 1 CSF: free flow, aspiration before injection, aspiration during injection, aspiration after injection Degree of difficulty: none Procedure Tolerance: tolerated well Sensory Level: T8 Motor Blockade: Yes Position post procedure: supine Vital Signs: Vital signs monitored and stable throughout. See anesthesia record for details. Start Time: 07/16/2020 8:14 AM End Time: 07/16/2020 8:16 AM Total Time: 2 Staff: Anesthesia Provider: Mike Torres APRN-CRNA - performed the procedure Luis Eduardo Ortiz DO GENERAL ANESTHESIA O RDERABLES * HCG URINE QUALITATIVE (07/16/2020 7:41 AM REGIONAL ENVIRONMENTAL MANAGER) hCG Qualitative Urine Negative Negative 07/16/2020 7:50 AM REGIONAL ENVIRONMENTAL MANAGER [facility] Urine URINE / Unknown Collection / Unknown 07/16/2020 7:41 AM REGIONAL ENVIRONMENTAL MANAGER 07/16/2020 7:44 AM REGIONAL ENVIRONMENTAL MANAGER Mikala Mayen DO LAB - URINALYSIS ORD ERABLES [facility] [address] [place] [address] * SARS-COV-2 (COVID-19) IN HOUSE (07/13/2020 12:16 PM REGIONAL ENVIRONMENTAL MANAGER) COVID-19 PCR Not detected Not detected 07/13/2020 10:19 PM REGIONAL ENVIRONMENTAL MANAGER [facility] Microbiology SPECIMEN FROM NASOPHARYNGEAL STRUCTURE / Unknown Collection / Unknown 07/13/2020 12:16 PM REGIONAL ENVIRONMENTAL MANAGER 07/13/2020 12:16 PM REGIONAL ENVIRONMENTAL MANAGER Narrative [facility] - 07/13/2020 10:19 PM REGIONAL ENVIRONMENTAL MANAGER This nucleic acid amplification assay performance was validated by [facility]. This test has been authorized by the Food and Drug administration (FDA)under an Emergency Use Authorization (EUA). This test has been validated in accordance with the FDA's guidance document Policy for Diagnostic Testing in Laboratories Certified to perform High Complexity Testing under CLIA prior to Emergency Use Authorization for Coronavirus Disease-2019 during the Public Health Emergency issued on September 24, 2019. FDA independent review of this validation is pending. This test is only authorized for the duration of time the declaration that circumstances exist justifying the authorization of emergency use of in vitro diagnostic tests for detection of SARS-CoV-2 virus and/or diagnosis of COVID-19 infection under section 564(b)(1) of the Act, 21 U.S.C 360bbb-3 (b)(1), unless the authorization is terminated or revoked sooner. Fact Sheets for this EUA assay are available upon request. Pop Phillips MD LAB - MICROBIOLOGY O RDERABLES [facility] [address] [phone] * XR KNEE RIGHT 4VW OR MORE (03/23/2020 10:25 AM CDT) Anatomical Region Laterality Modality Lower Extremity Computed Radiogr aphy Narrative 03/23/2020 10:26 AM CDT Arelis Rankin RT(R) 03/30/2020 5:40 PM See progress notes for results Pop Phillips MD DIAGNOSTIC IMAGING O RDERABLES Care Teams Fleet Technician Relationship Specialty Start Date End Date Colette Hernandez MD [address] [place] [address] PCP - General Family Medicine 08/09/19 [place] [address] [address] Orthopedic Surgery 08/09/19
[2024-09-12 13:36] LABS: BEDSIDEPREGUCG Negative (Negative)
--- OUTSIDE RECORDS SUMMARY | 2024-09-12 14:20 | XMS_ITS | Clinical Summary ---
Author Organization [facility] [employer] Address [address] [place] [address] Care Team Providers Care Wearing Apparel Shaker Name Role Phone Colette Hernandez MD Primary Care Provider [phone] Pop Phillips MD Unavailable [phone] Source Comments [facility],non-[facility] Affiliates and Associated Physician Practices is amultiple site organization consisting of ambulatory clinics and hospital sitesin [place], [place] and [place]. This disclosure is being madepursuant to the Care Everywhere program and may not contain all information available regarding this patient. Last updated 18.[facility] Allergies Active Allergy Reactions Criticality Noted Date [...] BEDTIME NEEDED FOR MUSCLE SPASTICITY 10/16/2023 Active [place]-3 Fatty Acids (FISH OIL CONCENTRATE PO)Indications:OLIVER PPLEMENT Reasons: SUPPLEMENT Activ e B Aiucpvx-J-Adpcl Acid (vitamin B complex with C)Indications:SUP PLEMENT [...] Type Department Care Team Description 07/07/2024 Telephone [facility] [address] [place] [address], [address] [address] Pop Phillips MD Letter 06/15/2024 Refill [facility] [address] [place] [address], [address] [address] Raul Walter, MANAGER OF BROADCAST CONTENT-DRAW IN HAND Refill Request from Last 3 Months Social [...] Recorded Patient Health Questionnaire-2 Score 0 05/10/2024 [facility] - Occupational [...] place to sleep or slept in a skilled nursing (including now)? No 02/17/2024 Sex and Gender [...] this topic Medical Devices Implanted Type Area Supervisor Pairing And Inspecting Device Identifier Shelf Expiration Date Model / Serial / Lot Cmnt Bone Djo Srg Cblt 40gm Hvisc Strl Implanted:Qty : 1 on 07/16/2020 by Pop Phillips MD at [facility] Right: Knee [employer] 11/14/2020 [id number] 0 / / [id number] Cmpnt Fem Kn Rt Cr Cmnt Prm Vngrd Intlk Implanted:Qty : 1 on 07/16/2020 by Pop Phillips MD at [facility] Right: Knee [employer] 03/16/2039 [id number] / / [id number] Tray Tib 75mm Kn Cocr I Beam Implanted:Qty : 1 on 07/16/2020 by Pop Phillips MD at [facility] Right: Knee [employer] 05/16/2030 [id number] / / [id number] Cmpnt Ptlr 28mm 1 Pg Wire Ascnt Arcm Kn Implanted:Qty : 1 on 07/16/2020 by Pop Phillips MD at [facility] Right: Knee [employer] 05/16/2025 [id number] / / [id number] [id number] Vngrd Arcm Kn Ant Stab Implanted:Qty : 1 on 07/16/2020 by Pop Phillips MD at [facility] Right: Knee [employer] 10/14/2024 [id number] / / [id number] Tray Tib 71mm Kn Cocr I Beam Implanted:Qty : 1 on 01/14/2024 by Pop Phillips MD at [facility] Left: Knee [employer] 12/10/2033 [id number] / / [id number] Cmnt Bone Plc R 40gm Grn Implanted:Qty : 1 on 01/14/2024 by Pop Phillips MD at [facility] Left: Knee [employer] 03/26/2026 [id number] / / [id number] Cmpnt Ptlr Std 28mm 3 Pg Kn Ser A Implanted:Qty : 1 on 01/14/2024 by Pop Phillips MD at [facility] Left: Patella [employer] 03/12/2028 [id number] / / [id number] Cmpnt Fem Kn Lt Cr Cmnt Prm Vngrd Intlk Implanted:Qty : 1 on 01/14/2024 by Pop Phillips MD at [facility] Left: Knee [employer] 09/25/2033 [id number] / / [id number] Brng [id number] Vngrd Arcm Kn Ant Stab Implanted:Qty : 1 on 02/15/2024 by Pop Phillips MD at [facility] Left: Knee [employer] 05/22/2028 [id number] / / [id number] Cmpnt Tibtry Kn Prm Lck Bar Bmt As Mx Implanted:Qty : 1 on 02/15/2024 by Pop Phillips MD at [facility] Left: Knee [employer] 11/23/2033 [id number] / / [id number] Explanted Type Area Supervisor Pairing And Inspecting Device Identifier Shelf Expiration Date Model / Serial / Lot Brng Unassigned [id number] Vngrd Kn Implanted:Qty: 1 on 01/14/2024 by Pop Phillips MD at [facility] Explanted:Qty: 1 on 02/15/2024 by Pop Phillips MD at [facility] Left: Knee [employer] 03/14/2027 [id number] / / [id number] Procedures Procedure Name Priority Date/Time Associated Diagnosis Comments BASIC METABOLIC PANEL (CALCIUM TOTAL) AM Draw 02/18/2024 6:44 AM CDT Abscess of left knee from Last 3 Months or Most Recently Relevant to Health Maintenance Results * (ABNORMAL) BASIC METABOLIC PANEL (CALCIUM TOTAL) (02/18/2024 6:44 AM CDT) [facility] Glucose 100 70 - 105 mg/dL 02/18/2024 7:06 AM CDT [facility] Sodium 143 136 - 145 mmol/L 02/18/2024 7:06 AM CDT [facility] Potassium 4.6 3.5 - 5.1 mmol/L 02/18/2024 7:06 AM CDT [facility] Chloride 112(H) 98 - 107 mmol/L 02/18/2024 7:06 AM CDT [facility] CO2 22 22 - 29 mmol/L 02/18/2024 7:06 AM CDT [facility] Calcium 8.9 8.4 - 10.4 mg/dL 02/18/2024 7:06 AM CDT [facility] Anion Gap 9 6 - 16 mmol/L 02/18/2024 7:06 AM CDT [facility] BUN 8 7 - 26 mg/dL 02/18/2024 7:06 AM CDT [facility] Creatinine 0.78 0.57 - 1.11 mg/dL 02/18/2024 7:06 AM T [facility] eGFR by CKD-EPI 90 >=90 mL/min/1.7 3 m2 02/18/2024 7:06 AM CDT [facility] Blood BLOOD SPECIMEN / Unknown Venipuncture / Unknown 02/18/2024 6:44 AM CDT 02/18/2024 6:47 AM CDT Jean-Pierre Scruggs II, LAB - CHEMISTRY OSVALDO VARELA [facility] [address] [place] [id number] from Last 3 Months or Most Recently Relevant to Health Maintenance Advance Directives Documents on File Type Date Recorded Patient Synchronous Motor 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 Expl anation Adv Directive/Living Will/POA 07/18/2020 8:08 PM * Full Code (Latest Code Status on File) Date Activated Date Inactivated Comments 02/15/2024 8:53 PM 02/18/2024 7:46 PM * Full Code Date Activated Date Inactivated Comments 01/14/2024 10:18 AM 01/15/2024 1:09 PM * Full Code Date Activated Date Inactivated Comments 07/16/2020 12:13 PM 07/17/2020 2:40 PM Care Teams Wearing Apparel Shaker Relationship Specialty Start Date End Date Colette Hernandez MD [address] [place] [address] PCP - General Family Medicine 08/09/19 [place] [address] [place] [id number] Orthopedic Surgery 08/09/19
--- OUTSIDE RECORDS SUMMARY | 2024-09-12 14:20 | XMS_ITS | Encounter Summary ---
Author Organization [facility] Address [address] [place] [address] Care Team Providers Care Supervisor Mails Name Role Phone Colette Hernandez MD Primary Care Provider [phone] Pop Phillips MD Unavailable [phone] Encounter Details Date Type Department Care Team (Late st Contact Info) Description 09/05/[address] [facility] Outpatient Visit [facility] [address] [place] [address] [place] [address] [place] [address] Social History Tobacco Use Types [...] on filedocumented in this encounter Care Teams Supervisor Mails Relationship Specialty Start Date End Date Colette Hernandez MD [address] [place] [address] PCP - General Family Medicine 08/09/19 [place] [address] [place] [id number] Orthopedic Surgery 08/09/19 documented as of this encounter
--- OUTSIDE RECORDS SUMMARY | 2024-09-12 14:20 | XMS_ITS | Patient Health Summary ---
Author Organization [facility] Address [address] [place] [address] Care Team Providers Care Telesales Professional Name Role Phone Colette Hernandez MD Primary Care Provider [phone] Pop Phillips MD Unavailable Note from [facility],non-owned Affiliates and Associated Physician Practices is amultiple site organization consisting of ambulatory clinics and hospital sitesin [place], [place], [place] and [place]. This disclosure is being madepursuant to the Care Everywhere program and may not contain all information available regarding this patient. Last updated 18.[facility] Allergies * Erythromycin(Nausea and/or Vomiting) * [...] by mouth once daily Reasons: SUPPLMENT * Bintgyyaa-Fqughbotxyu-Vzn D (OSTEO BI-FLEX ONE PER DAY PO) [...] AT BEDTIME NEEDED FOR MUSCLE SPASTICITY * [place]-3 Fatty Acids (FISH OIL CONCENTRATE PO) Reasons: SUPPLEMENT * B Tebddrc-F-Zlthv Acid (vitamin B complex with C) Take [...] Recorded Patient Health Questionnaire-2 Score 0 05/10/2024 [facility] Occupat ional [facility] - Occupational Stress [...] place to sleep or slept in a alf (including now)? No 02/17/2024 Sex and Gender [...] PM CDT Medical Devices Implanted Type Area Respite Worker Device Identifier Shelf Expiration Date Model / Serial / Lot Cmnt Bone Djo Srg Cblt 40gm Hvisc Strl Implanted:Qty : 1 on 07/16/2020 by Pop Phillips MD at [facility] Right: Knee [employer] 11/14/2020 600-15-00 0 / / [id number] Cmpnt Fem Kn Rt Cr Cmnt Prm Vngrd Intlk Implanted:Qty : 1 on 07/16/2020 by Pop Phillips MD at [facility] Right: Knee [employer] 03/16/2039 [id number] / / [id number] Tray Tib 75mm Kn Cocr I Beam Implanted:Qty : 1 on 07/16/2020 by Pop Phillips MD at [facility] Right: Knee [employer] 05/16/2030 [id number] / / [id number] Cmpnt Ptlr 28mm 1 Pg Wire Ascnt Arcm Kn Implanted:Qty : 1 on 07/16/2020 by Pop Phillips MD at [facility] Right: Knee [employer] 05/16/2025 [id number] / / [id number] Brng [id number] Vngrd Arcm Kn Ant Stab Implanted:Qty : 1 on 07/16/2020 by Pop Phillips MD at [facility] Right: Knee [employer] 10/14/2024 [id number] / / [id number] Tray Tib 71mm Kn Cocr I Beam Implanted:Qty : 1 on 01/14/2024 by Pop Phillips MD at [facility] Left: Knee [employer] 12/10/2033 [id number] / / [id number] Cmnt Bone Plc R 40gm Grn Implanted:Qty : 1 on 01/14/2024 by Pop Phillips MD at [facility] Left: Knee [employer] 03/26/2026 [id number] / / [id number] Cmpnt Ptlr Std 28mm 3 Pg Kn Ser A Implanted:Qty : 1 on 01/14/2024 by Pop Phillips MD at [facility] Left: Patella [employer] 03/12/2028 [id number] / / [id number] Cmpnt Fem Kn Lt Cr Cmnt Prm Vngrd Intlk Implanted:Qty : 1 on 01/14/2024 by Pop Phillips MD at [facility] Left: Knee [employer] 09/25/2033 [id number] / / [id number] Brng [id number] Vngrd Arcm Kn Ant Stab Implanted:Qty : 1 on 02/15/2024 by Pop Phillips MD at [facility] Left: Knee [employer] 05/22/2028 [id number] / / [id number] Cmpnt Tibtry Kn Prm Lck Bar Bmt As Mx Implanted:Qty : 1 on 02/15/2024 by Pop Phillips MD at [facility] Left: Knee [employer] 11/23/2033 [id number] / / [id number] Explanted Type Area Respite Worker Device Identifier Shelf Expiration Date Model / Serial / Lot Brng Unassigned [id number] Vngrd Kn Implanted:Qty: 1 on 01/14/2024 by Pop Phillips MD at [facility] Explanted:Qty: 1 on 02/15/2024 by Pop Phillips MD at [facility] Left: Knee [employer] 03/14/2027 [id number] / / [id number] Procedures * DIFFERENTIAL MANUAL(Performed 02/18/2024) Performed for [...] knee * ENDOTRACHEAL TUBE NOTE(Performed 02/15/2024) * WA INCIS/DRAIN THIGH/KNEE ABSCESS,DEEP(Performed 02/15/2024) * BASIC METABOLIC PANEL (CALCIUM TOTAL)(Performed 02/15/2024) Performed for Preop examination * CBC W AUTO DIFFERENTIAL(Performed 02/15/2024) Performed for Preop examination * CULTURE BLOOD(Performed 02/15/2024) Performed for Preop examination * XR KNEE LEFT 2VW OR LESS(Performed 02/15/2024) Performed for Primary osteoarthritis of left knee * HOME CPAP/BIPAP FOR HOSP USE: NOCTURNAL 02(Performed 01/14/2024) * NEURAXIAL BLOCK(Performed 01/14/2024) * WA TOTAL KNEE REPLACEMENT(Performed 01/14/2024) * EKG 12-LEAD(Performed [...] - 74 % 02/18/2024 7:45 AM CDT [facility] Lymphocyte % 14(L) 17 - 47 % 02/18/2024 7:45 AM CDT [facility] Monocyte % 4 3 - 11 % 02/18/2024 7:45 AM CDT [facility] Eosinophil % 12(H) 0 - 7 % 02/18/2024 7:45 AM CDT [facility] Metamyelocyte % 2(H) 0% % 7:45 AM CDT [facility] Myelocyte % 3(H) 0% % 02/18/2024 7:45 AM CDT [facility] Neutrophil Absolute 3.51 1.60 - 7.50 x10E9/L 02/18/2024 7:45 AM CDT [facility] Lymphocyte Absolute 0.76(L) 1.00 - 4.40 x10E9/L 02/18/2024 7:45 AM CDT [facility] Monocyte Absolute 0.22 0.15 - 1.00 x10E9/L 02/18/2024 7:45 AM CDT [facility] Eosinophil Absolute 0.65(H) 0.00 - 0.60 x10E9/L 02/18/2024 7:45 AM CDT [facility] RBC Morphology REVIEWED 02/18/2024 7:45 AM CDT [facility] Platelet Clumps PRESENT(A) (none) 7:45 AM CDT [facility] Blood BLOOD SPECIMEN / Unknown Venipuncture / Unknown 02/18/2024 6:44 AM CDT 02/18/2024 6:47 AM CDT Jean-Pierre Scruggs II, DO LAB - HEMATOLOGY ORD ERABLES [facility] [address] [place] [address] * (ABNORMAL) CBC W AUTO DIFFERENTIAL (02/18/2024 6:44 AM CDT) Only the most recent of4 resultswithin the time period is included. [facility] WBC 5.4 4.0 - 10.7 x10E9/L 02/18/2024 7:45 AM CDT [facility] RBC Count 3.00(L) 3.90 - 5.20 x10E12/L 02/18/2024 7:45 AM CDT [facility] Hemoglobin 8.9(L) 11.9 - 15.8 g/dL 02/18/2024 7:45 AM CDT [facility] Hematocrit 27.1(L) 34.8 - 46.1 % 02/18/2024 7:45 AM CDT [facility] MCV 90.3 80.0 - 98.0 fL 02/18/2024 7:45 AM CDT [facility] MCH 29.7 26.7 - 33.6 pg 02/18/2024 7:45 AM CDT [facility] MCHC 32.8 31.7 - 36.3 g/dL 02/18/2024 7:45 AM CDT [facility] RDW-CV 13.2 11.3 - 14.8 % 02/18/2024 7:45 AM CDT [facility] Platelet Count 220 150 - 420 x10E9/L 02/18/2024 7:45 AM CDT [facility] MPV 9.4 7.8 - 11.4 fL 02/18/2024 7:45 AM CDT [facility] Blood BLOOD SPECIMEN / Unknown Venipuncture / Unknown 02/18/2024 6:44 AM CDT 02/18/2024 6:47 AM CDT Jean-Pierre Scruggs II, DO LAB - HEMATOLOGY ORD ERABLES Performing Organization Address City/State/[facility] Co de Phone Number [facility] [address] [place] [address] * (ABNORMAL) BASIC METABOLIC PANEL (CALCIUM TOTAL) (02/18/2024 6:44 AM CDT) Only the most recent of3 resultswithin the time period is included. [facility] Glucose 100 70 - 105 mg/dL 02/18/2024 7:06 AM CDT [facility] Sodium 143 136 - 145 mmol/L 02/18/2024 7:06 AM CDT [facility] Potassium 4.6 3.5 - 5.1 mmol/L 02/18/2024 7:06 AM CDT [facility] Chloride 112(H) 98 - 107 mmol/L 02/18/2024 7:06 AM CDT [facility] CO2 22 22 - 29 mmol/L 02/18/2024 7:06 AM CDT [facility] Calcium 8.9 8.4 - 10.4 mg/dL 02/18/2024 7:06 AM CDT [facility] Anion Gap 9 6 - 16 mmol/L 02/18/2024 7:06 AM CDT [facility] BUN 8 7 - 26 mg/dL 02/18/2024 7:06 AM CDT [facility] Creatinine 0.78 0.57 - 1.11 mg/dL 02/18/2024 7:06 AM CDT [facility] eGFR by CKD-EPI 90 >=90 mL/min/1.7 3 m2 02/18/2024 7:06 AM CDT [facility] Blood BLOOD SPECIMEN / Unknown Venipuncture / Unknown 02/18/2024 6:44 AM CDT 02/18/2024 6:47 AM CDT Jean-Pierre Scruggs II, DO LAB - CHEMISTRY OSVALDO VARELA Performing Organization Address [facility]/ZIP Co de Phone Number [facility] [address] [place] [address] * VANCOMYCIN LEVEL TROUGH (02/18/2024 6:44 AM CDT) Vancomycin Trough 14.6 10.0 - 20.0 ug/mL 02/18/2024 7:06 AM CDT [facility] Blood BLOOD SPECIMEN / Unknown Venipuncture / Unknown 02/18/2024 6:44 AM CDT 02/18/2024 6:47 AM CDT Everardo Saenz MD LAB - CHEMISTRY OSVALDO VARELA Performing Organization Address City/[facility]/ZIP Co de Phone Number [facility] [address] [place] [address] * CULTURE WOUND+GRAM STAIN (02/15/2024 7:36 PM CDT) Culture No growth JOYCE 02/18/2024 7:22 AM CDT [facility] Gram Stain Light Polymorphonuclear cells 02/18/2024 7:22 AM CDT [facility] Gram Stain No organisms seen 024 7:22 AM CDT [facility] Microbiology SOFT TISSUE BIOPSY SPECIMEN / Unknown 02/15/2024 7:36 PM CDT 02/15/2024 8:18 PM CDT Narrative [facility] - 02/18/2024 7:22 AM CDT Surgical Description: Left Knee Deep Tissue Culture Pop Phillips MD LAB - MICROBIOLOGY O ANYA Performing Organization Address City/[facility]/ZIP Co de Phone Number [facility] [address] [place] [address], [facility] [phone] * CULTURE ANAEROBE (02/15/2024 7:36 PM CDT) Only the most recent of2 resultswithin the time period is included. Culture No anaerobic organisms isolated JOYCE 02/21/2024 7:19 AM CDT [facility] Microbiology SOFT TISSUE BIOPSY SPECIMEN / Unknown 02/15/2024 7:36 PM CDT 02/15/2024 8:18 PM CDT Narrative [facility] - 02/21/2024 7:19 AM CDT Surgical Description: Left Knee Deep Tissue Culture Pop Phillips MD LAB - MICROBIOLOGY O ANYA Performing Organization Address City/[facility]/ZIP Co de Phone Number [facility] [address] [place] [address], [facility] [phone] * (ABNORMAL) CULTURE TISSUE+GRAM STAIN (02/15/2024 7:29 PM CDT) Culture Rare Staphylococcus aureus(AA) JOYCE 02/19/2024 6:07 AM CDT [facility] Comment:Staphylococcus aureu s methicillin-susceptible (MSSA) detected by penicillin binding protein immunoassay. Gram Stain Light Polymorphonuclear cells 02/19/2024 6:07 AM CDT [facility] Gram Stain Heavy Red blood cells 02/19/2024 6:07 AM CDT [facility] Gram Stain No organisms seen 024 6:07 AM CDT [facility] Microbiology TISSUE SPECIMEN / Unknown 02/15/2024 7:29 PM CDT 02/15/2024 8:18 PM CDT Narrative [facility] - 02/19/2024 6:07 AM CDT Surgical [...] Phillips MD LAB - MICROBIOLOGY O RDERABLES [facility] [address] [place], [place] [address], [facility] [phone] * ETT LINE PERFORMABLE (02/15/2024 7:05 PM CDT) Narrative Cristina Harrell APRN-CRNA - 02/15/2024 7:05 PM CDT Cristina Harrell APRN-CRNA 02/15/2024 7:05 PM Endotracheal Tube Placement: Patient Location: OR. Intubation Event Date/Time: 02/15/2024 6:56 PM Procedure: intubation ([address]2001) Procedure Section: Sedation: under general anesthesia. Indications [...] day 5 JOYCE 02/20/2024 9:00 PM CDT [facility] Blood PERIPHERAL BLOOD / Unknown Venipuncture / Unknown 02/15/2024 3:58 PM CDT 02/15/2024 4:29 PM CDT Pop Phillips MD LAB - MICROBIOLOGY O ANYA Performing Organization Address [facility] Co de Phone Number [facility] [address] [phone] * XR KNEE LEFT 2VW OR LESS (02/15/2024 2:00 PM CDT) Narrative [facility] [address] - 02/15/2024 2:00 PM CDT Please see progress note in Epic for results. Pop Phillips MD DIAGNOSTIC IMAGING O ANYA Performing Organization Address [facility] Co de Phone Number [facility] [address] * Neuraxial Block (01/14/2024 7:34 [...] midline Skin was localized? Nursing documentation on [facility] Skin localized with: Lidocaine 1% and 1 mL Spinal Block: Needle Type: spinal needle Needle Gauge: 22 Needle Length: 90 mm Placement Site: L3-4 Number of Attempts: 1 CSF: free flow, aspiration before injection Local anesthetics used? Nursing documentation on the [facility] Spinal Local Anesthetic: Bupivacaine: 0.75% [...] Time: 6 Staff: Anesthesia Provider: Fortino Esteves APRN-OPERATIONS REPRESENTATIVE - performed the procedure Calvin Astudillo MD [...] (Bezet) 388 ms [facility] MUSE Calculated P Thorp 38 degrees [facility] MUSE Calculated R Thorp 42 degrees [facility] MUSE Calculated T Thorp 41 degrees [facility] Interpretation EKG Normal sinus rhythm Normal ECG When compared with ECG of 16-MAY-2020 13:40, No significant change was found Confirmed by MATTHEW CHOW, DANNI NEWMAN ([id number]) on 12/23/2023 7:22:42 PM [facility] MUSE 12/23/2023 1:30 PM CDT 12/23/2023 7:22 PM CDT Mikala Mayen DO ECG ORDERABLES [facility] * (ABNORMAL) COMPREHENSIVE METABOLIC PANEL (12/23/2023 1:19 PM CDT) Only the most recent of2 resultswithin the time period is included. Glucose 105 70 - 105 mg/dL 12/23/2023 1:41 PM CDT [facility] Sodium 144 136 - 145 mmol/L 12/23/2023 1:41 PM CDT [facility] Potassium 4.2 3.5 - 5.1 mmol/L 12/23/2023 1:41 PM CDT [facility] Chloride 110(H) 98 - 107 mmol/L 12/23/2023 1:41 PM CDT [facility] CO2 27 22 - 29 mmol/L 12/23/2023 1:41 PM CDT [facility] Calcium 8.9 8.4 - 10.4 mg/dL 12/23/2023 1:41 PM CDT [facility] Anion Gap 7 6 - 16 mmol/L 12/23/2023 1:41 PM CDT [facility] BUN 10 7 - 26 mg/dL 12/23/2023 1:41 PM CDT [facility] Creatinine 0.93 0.57 - 1.11 mg/dL 12/23/2023 1:41 PM CDT [facility] Alkaline Phosphatase 55 40 - 150 U/L 12/23/2023 1:41 PM CDT [facility] ALT 27 0 - 55 U/L 12/23/2023 1:41 PM CDT [facility] AST 25 5 - 34 U/L 12/23/2023 1:41 PM CDT [facility] Protein Total 5.9(L) 6.4 - 8.3 gm/dL 12/23/2023 1:41 PM CDT [facility] Albumin 3.4 3.4 - 5.0 gm/dL 12/23/2023 1:41 PM CDT [facility] Bilirubin Total 0.4 0.2 - 1.2 mg/dL 12/23/2023 1:41 PM CDT [facility] eGFR by CKD-EPI 73(L) >=90 mL/min/1.7 3 m2 12/23/2023 1:41 PM CDT [facility] Blood BLOOD SPECIMEN / Unknown Venipuncture / Unknown 12/23/2023 1:19 PM CDT 12/23/2023 1:23 PM CDT Gina Walter TOOL MECHANIC-SALES AND CUSTOMER RELATIONS REP LAB - CHEMI STRY ORDERABLES Performing Organization Address [facility]/ZIP Co de Phone Number [facility] [address] [place] [address] * XR KNEE BILAT 3VW (12/10/2023 3:03 PM CDT) Narrative [facility] [address] - 12/10/2023 3:09 PM CDT Please see progress note in Epic for results. Pop Phillips MD DIAGNOSTIC IMAGING O RDERABLES Performing Organization Address [facility] Co de Phone Number [facility] [address] * XR KNEE RIGHT 3VW (08/27/2020 3:07 PM SKIN CARVER) Anatomical Region Laterality Modality Lower Extremity Computed Radiogr aphy Narrative 08/27/2020 3:07 PM SKIN CARVER Arelis Rankin, RT(R) 08/27/2020 5:54 PM See progress notes for results Pop Phillips MD DIAGNOSTIC IMAGING O RDERABLES * (ABNORMAL) HGB HCT PANEL (07/17/2020 4:57 AM SKIN CARVER) Hemoglobin 11.1(L) 12.0 - 15.6 gm/dL 07/17/2020 5:25 AM SKIN CARVER [facility] Hematocrit 33.6(L) 35.9 - 45.5 % 07/17/2020 5:25 AM SKIN CARVER [facility] Blood BLOOD SPECIMEN / Unknown Venipuncture / Unknown 07/17/2020 4:57 AM SKIN CARVER 07/17/2020 5:13 AM SKIN CARVER Pop Phillips MD LAB - HEMATOLOGY ORD ERABLES Performing Organization Address [facility]/ZIP Co de Phone Number [facility] [address] [place] [address] * Neuraxial Block (07/16/2020 8:57 AM SKIN CARVER) Narrative Mike Torres APRN-CRNA - 07/16/2020 8:57 AM SKIN CARVER Mike Torres APRN-CRNA 07/16/2020 8:59 AM Neuraxial [...] * HCG URINE QUALITATIVE (07/16/2020 7:41 AM SKIN CARVER) hCG Qualitative Urine Negative Negative 07/16/2020 7:50 AM SKIN CARVER [facility] Urine URINE / Unknown Collection / Unknown 07/16/2020 7:41 AM SKIN CARVER 07/16/2020 7:44 AM SKIN CARVER Mikala Mayen DO LAB - URINALYSIS ORD ERABLES [facility] [address] [place] [address] * SARS-COV-2 (COVID-19) IN HOUSE (07/13/2020 12:16 PM SKIN CARVER) COVID-19 PCR Not detected Not detected 07/13/2020 10:19 PM SKIN CARVER [facility] Microbiology SPECIMEN FROM NASOPHARYNGEAL STRUCTURE / Unknown Collection / Unknown 07/13/2020 12:16 PM SKIN CARVER 07/13/2020 12:16 PM SKIN CARVER Narrative [facility] - 07/13/2020 10:19 PM SKIN CARVER This nucleic acid amplification assay performance was validated by [facility]. This test has been authorized [...] Phillips MD LAB - MICROBIOLOGY O RDERABLES [facility] [address] [phone] * XR KNEE RIGHT 4VW OR MORE (03/23/2020 10:25 AM CDT) Anatomical Region Laterality Modality Lower Extremity Computed Radiogr aphy Narrative 03/23/2020 10:26 AM CDT Arelis Rankin RT(R) 03/30/2020 5:40 PM See progress notes for results Pop Phillips MD DIAGNOSTIC IMAGING O RDERABLES Care Teams Telesales Professional Relationship Specialty Start Date End Date Colette Hernandez MD [address] [place] [address] PCP - General Family Medicine 08/09/19 [place] [address] [address] Orthopedic Surgery 08/09/19
--- OUTSIDE RECORDS SUMMARY | 2024-09-12 14:20 | XMS_ITS | Referral Summary ---
Author Organization [facility] Address [address] [place] [address] Care Team Providers Care Operating Systems Specialist Name Role Phone Colette Hernandez MD Primary Care Provider [phone] Pop Phillips MD Unavailable [phone] Source Comments [facility] Affiliates and Associated Physician Practices is amultiple site organization consisting of ambulatory clinics and hospital sitesin [place], [place], [place]. This disclosure is being madepursuant to the Care Everywhere program and may not contain all information available regarding this patient. Last updated 18.[facility] Encounters Date Type Department Care Team Description 07/07/[address], [address] [place] [address] Pop Phillips MD Letter 06/15/[address], [facility] [address] [place] [address] Raul Walter, FOUNDATION ASSISTANT-CALL WORKER Refill Request from Last 3 Months Allergies [...] BEDTIME NEEDED FOR MUSCLE SPASTICITY 10/16/2023 Active [place]-3 Fatty Acids (FISH OIL CONCENTRATE PO)Indications:OLIVER PPLEMENT Reasons: SUPPLEMENT Activ e B Piltimq-Y-Sjjzh Acid (vitamin B complex with C)Indications:SUP PLEMENT [...] Recorded Patient Health Questionnaire-2 Score 0 05/10/2024 [facility] - Occupational Stress [...] to sleep or slept in a senior living (including now)? No 02/17/2024 Sex and Gender [...] on file Medical Devices Implanted Type Area Brush Maker Device Identifier Shelf Expiration Date Model / Serial / Lot Cmnt Bone Djo Srg Cblt 40gm Hvisc Strl Implanted:Qty : 1 on 07/16/2020 by Pop Phillips MD at [facility] Right: Knee [employer] 11/14/2020 600-15-00 0 / / [id number] Cmpnt Fem Kn Rt Cr Cmnt Prm Vngrd Intlk Implanted:Qty : 1 on 07/16/2020 by Pop Phillips MD at [facility] Right: Knee [employer] 03/16/2039 [id number] / / [id number] Tray Tib 75mm Kn Cocr I Beam Implanted:Qty : 1 on 07/16/2020 by Pop Phillips MD at [facility] Right: Knee [employer] 05/16/2030 [id number] / / [id number] Cmpnt Ptlr 28mm 1 Pg Wire Ascnt Arcm Kn Implanted:Qty : 1 on 07/16/2020 by Pop Phillips MD at [facility] Right: Knee [employer] 05/16/2025 [id number] / / [id number] Brng [id number] Vngrd Arcm Kn Ant Stab Implanted:Qty : 1 on 07/16/2020 by Pop Phillips MD at [facility] Right: Knee [employer] 10/14/2024 [id number] / / [id number] Tray Tib 71mm Kn Cocr I Beam Implanted:Qty : 1 on 01/14/2024 by Pop Phillips MD at [facility] Left: Knee [employer] 12/10/2033 [id number] / / [id number] Cmnt Bone Plc R 40gm Grn Implanted:Qty : 1 on 01/14/2024 by Pop Phillips MD at [facility] Left: Knee [employer] 03/26/2026 [id number] / / [id number] Cmpnt Ptlr Std 28mm 3 Pg Kn Ser A Implanted:Qty : 1 on 01/14/2024 by Pop Phillips MD at [facility] Left: Patella [employer] 03/12/2028 [id number] / / [id number] Cmpnt Fem Kn Lt Cr Cmnt Prm Vngrd Intlk Implanted:Qty : 1 on 01/14/2024 by Pop Phillips MD at [facility] Left: Knee [employer] 09/25/2033 [id number] / / [id number] Brng [id number] Vngrd Arcm Kn Ant Stab Implanted:Qty : 1 on 02/15/2024 by Pop Phillips MD at [facility] Left: Knee [employer] 05/22/2028 [id number] / / [id number] Cmpnt Tibtry Kn Prm Lck Bar Bmt As Mx Implanted:Qty : 1 on 02/15/2024 by Pop Phillips MD at [facility] Left: Knee [employer] 11/23/2033 [id number] / / [id number] Explanted Type Area Brush Maker Device Identifier Shelf Expiration Date Model / Serial / Lot Souleymane Unassigned [id number] Vngrd Kn Implanted:Qty: 1 on 01/14/2024 by Pop Phillips MD at [facility] Explanted:Qty: 1 on 02/15/2024 by Pop Phillips MD at [facility] Left: Knee [employer] 03/14/2027 [id number] / / [id number] Procedures Procedure Name Priority Date/Time Associated Diagnosis Comments BASIC METABOLIC PANEL (CALCIUM TOTAL) AM Draw 02/18/2024 6:44 AM CDT Abscess of left knee from Last 3 Months or Most Recently Relevant to Health Maintenance Results * (ABNORMAL) BASIC METABOLIC PANEL (CALCIUM TOTAL) (02/18/2024 6:44 AM CDT) Pathologist [facility] Glucose 100 70 - 105 mg/dL 02/18/2024 [...] II, DO LAB - CHEMISTRY [facility] [id number] [place] [address] from Last 3 Months or Most Recently Relevant to Health Maintenance Advance Directives Documents on File Type Date 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 Adv Directive/Living Will/POA 07/18/2020 8:08 PM * Full Code (Latest Code Status on File) Date Activated Date Inactivated Comments 02/15/2024 8:53 PM 02/18/2024 7:46 PM * Full Code Date Activated Date Inactivated Comments 01/14/2024 10:18 AM 01/15/2024 1:09 PM * Full Code Date Activated Date Inactivated Comments 07/16/2020 12:13 PM 07/17/2020 2:40 PM Care Teams Operating Systems Specialist Relationship Specialty Start Date End Date Colette Hernandez MD [address] [place] [address] PCP - General Family Medicine 08/09/19 [place] [address] [place] [address] Orthopedic Surgery 08/09/19
== END 2024-09-12 14:02 | disposition home or self-care (01) ==
PROVIDERS: Emergency Provider Emergency Medicine; PCP Family Medicine
DX: R10.31 Right lower quadrant pain (principal); E78.5 Hyperlipidemia, unspecified; G47.33 Obstructive sleep apnea (adult) (pediatric); F39 Unspecified mood [affective] disorder; F41.9 Anxiety disorder, unspecified; Z96.659 Presence of unspecified artificial knee joint; Z79.899 Other long term (current) drug therapy
CPT/HCPCS: 36415; 74177; 80053; 81001; 81025; 83690; 85025; 96374; 99284; J2270; Q9967

== ENCOUNTER 2024-12-28 12:42 | Outpatient (CLI) | payer BC, SELFPAY ==
--- NOTE | ~2024-12-28 | DEXA_ITS ---
Bone Density Report Name: DARWIN LAWRENCE Age: 54 Sex: Female Ethnicity: White Date of : 1970 Indication: postmenopausal; screening for osteoporosis; asthma or emphysema; Referring Provider: HUBERT STEPHENSON Study: Bone densitometry was performed. Exam Date: December 28, 2024 Accession number: [id number] Bone Density: Region BMD T-score Z-score Classification AP Spine(L1-L4) 1.301 2.3 3.4 Normal Femoral Neck (Left) 0.954 0.9 2.0 Normal Total Hip (Left) 1.320 3.1 3.8 Normal Femoral Neck (Right) 0.954 0.9 2.0 Normal Total Hip (Right) 1.281 2.8 3.5 Normal Total Hip Mean 1.300 3.0 3.7 Normal World Health Organization criteria for BMD impression classify patients as: Normal (T-score at or above -1.0), Osteopenia (T-score between -1.0 and -2.5), or Osteoporosis (T-score at or below -2.5). 10-year Fracture Risk: FRAX not reported because: All T-scores for Spine Total, Hip Total, Femoral Neck at or above -1.0 Clinical Information Provided by Patient: Has used the following medications: Vitamin D Has the following medical conditions: Asthma or Emphysema Patient maximum height was 69 Menopause Age: 52 Drinks caffeinated beverages Onset of menses at age 12 Number of children 2 Impression: The patient has normal bone mass. Discussion: BONE DENSITY IS ABOVE THE MINIMUM DESIRABLE LEVEL AT ALL SKELETAL SITES TESTED. This patient?s bone mineral density is above the minimum desirable level (T-score -1.0 or better) at all sites measured. The patient should follow a healthful lifestyle (good nutrition with adequate calcium and vitamin D, and appropriate weight-bearing exercise). Follow-Up: Consider repeating this study in 5 years or sooner if there is some new clinical indication. Reported by: ANIL on 12/28/2024 1:10:00 PM. Reviewed, dictated and finalized at location A.
== END 2024-12-28 12:43 | disposition home or self-care (01) ==
LOC: MICIMG 12:43
PROVIDERS: PCP Family Medicine; Visit Provider Student in an Organized Health Care Education/Training Program
DX: Z13.820 Encounter for screening for osteoporosis (principal); Z78.0 Asymptomatic menopausal state
CPT/HCPCS: 77080

== ENCOUNTER 2025-03-29 12:51 | Outpatient (CLI) | payer BC, SELFPAY ==
--- NOTE | ~2025-03-29 | MM_ITS ---
EXAMINATION: MM screening nico BI w noelle HISTORY: Screening TECHNIQUE: Craniocaudal and mediolateral oblique 3-D tomosynthesis images were obtained and synthetic 2-D images were generated. CAD analysis was submitted and interpreted. COMPARISON: Mammogram 05/17/2021 BREAST PARENCHYMAL COMPOSITION: Not Dense: The breasts are almost entirely fatty. FINDINGS: There is no evidence of suspicious mass, calcification, or architectural distortion to suggest malignancy in either breast. [There has been no significant interval change. IMPRESSION: 1. No mammographic evidence of malignancy. Recommend routine screening mammography in one year. BI-RADS Category 1: Negative Reviewed, dictated, and finalized at Location A. Reviewed, dictated and finalized at location Q. IMPRESSION: 1. No mammographic evidence of malignancy. Recommend routine screening mammogra phy in one year. BI-RADS Category 1: Negative
== END 2025-03-29 12:52 | disposition home or self-care (01) ==
LOC: MICIMG 12:51
PROVIDERS: PCP Student in an Organized Health Care Education/Training Program; Visit Provider Student in an Organized Health Care Education/Training Program
DX: Z12.31 Encounter for screening mammogram for malignant neoplasm of breast (principal)
CPT/HCPCS: 77063; 77067